=== PATIENT | female | born 1950 | race Caucasian/White ===

== ENCOUNTER 2016-12-21 08:46 | Emergency (ER) | payer MEDICARE, BC ==
[2016-12-21] MEDS ORDERED: ACETAMINOPHEN TAB 325 MG TAB PO STA (09:07)
[2016-12-21] MEDS ORDERED: PROMETHAZ-COD 6.25-10 MG/5 ML 5 ML CUP PO STA (09:09)
--- NOTE | 2016-12-21 09:16 | ED ---
General Adult HPI - General Chief complaint: Upper Respiratory Infection Stated complaint: diff breathing,cough Time Seen by Provider: 12/21/16 08:55 Source: patient Mode of arrival: ambulatory Limitations: no limitations - History of Present Illness Initial comments: 66-year-old female patient with past medical history significant for COPD presents to emergency department today for complaints of persistent dry cough, fever, and nasal drainage. Patient states symptoms started on Thursday, and seemed to be getting worse. Patient states she does get short of breath with activity. Patient usually does two nebulizer treatments per day, and has had increase to 4 per day. She did take ibuprofen this morning. Patient states that she has been having chills and sweats. Patient denies any chest pain, back pain, palpitations, nausea, vomiting, diarrhea, dizziness, or weakness. She denies any hematuria, dysuria, frequency, or urgency. She did complete a course of macrobid for urinary tract infection yesterday. Patient was also treated by her rf design engineer last month for similar symptoms and did complete a 16 day course of steroids. - Related Data Home Medications Medication Instructions Recorded Confirmed Albuterol Sulfate [Ventolin HFA] 1 - 2 puff INHALATION BID 06/22/14 12/19/14 Lansoprazole [Prevacid] 30 mg PO QAM 06/22/14 12/19/14 Loratadine [Claritin] 10 mg PO DAILY 06/22/14 12/19/14 Losartan Potassium [Cozaar] 50 mg PO QAM 06/22/14 12/19/14 Mometasone Furoate [Nasonex] 2 sprays EA NOSTRIL DAILY 06/22/14 12/19/14 Montelukast [Singulair] 10 mg PO HS 06/22/14 12/19/14 Ipratropium Nebulized [Atrovent 0.5 mg INHALATION BID 12/05/14 12/19/14 Nebulized] Magnesium Oxide [Mag-Ox] 400 mg PO DAILY 12/05/14 12/19/14 Ciprofloxacin HCl [Cipro] 500 mg PO Q12HR 12/19/14 12/19/14 Previous Rx's Medication Instructions Recorded Acetaminophen-Codeine 300-30mg 1 each PO Q6H PRN #20 tablet 12/19/14 [Tylenol #3] Levofloxacin [Levaquin] 500 mg PO DAILY #10 tab 12/21/16 Promethaz-Cod 6.25-10 mg/5 ml 5 ml PO Q6HR PRN #120 ml 12/21/16 [Phenergan with Codeine] predniSONE 10 mg PO DIRECTED #30 tab 12/21/16 Allergies Allergy/AdvReac Type Severity Reaction Status Date / Time cefuroxime AdvReac Unknown Nausea & Verified 12/21/16 08:53 Vomiting cefuroxime axetil AdvReac Unknown Nausea & Verified 12/21/16 08:53 [From Ceftin] Vomiting phenazopyridine AdvReac Unknown Nausea & Verified 12/21/16 08:53 [Phenazopyridine] Vomiting phenazopyridine HCl AdvReac Unknown Nausea & Verified 12/21/16 08:53 [From Pyridium] Vomiting Review of Systems ROS Statement: Those systems with pertinent positive or pertinent negative responses have been documented in the HPI. ROS Other: All systems not noted in ROS Statement are negative. Past Medical History Past Medical History: Asthma, COPD, Hypertension Additional Past Medical History / Comment(s): hx kidney stones,diverticulitis, IBS, obstructive sleep apnea CPAP setting 6.0, TMJ,osteopenia,restless leg syndrome, degeneritive disc disease History of Any Multi-Drug Resistant Organisms: None Reported Past Surgical History: Bladder Surgery, Cholecystectomy, Hernia Repair Additional Past Surgical History / Comment(s): lithotripsy, right foot, hiatal hernia, Past Anesthesia/Blood Transfusion Reactions: Postoperative Nausea & Vomiting ( PONV) Past Psychological History: No Psychological Hx Reported Smoking Status: Former smoker Past Alcohol Use History: None Reported Past Drug Use History: None Reported - Past Family History Mother Additional Family Medical History / Comment(s): TB 1954, emphysema General Exam Limitations: no limitations General appearance: alert, in no apparent distress, anxious Head exam: Present: atraumatic, normocephalic Eye exam: Present: normal appearance, PERRL, EOMI. Absent: conjunctival injection, nystagmus, periorbital swelling Pupils: Present: normal accommodation ENT exam: Present: normal exam, mucous membranes moist, TM's normal bilaterally , normal external ear exam. Absent: normal oropharynx (Pharyngeal erythema), mucous membranes dry Neck exam: Present: normal inspection, full ROM. Absent: tenderness, meningismus, lymphadenopathy Respiratory exam: Present: normal lung sounds bilaterally, other (Persistent cough noted during exam). Absent: respiratory distress, wheezes, rales, rhonchi , stridor, chest wall tenderness, accessory muscle use, decreased breath sounds Cardiovascular Exam: Present: normal rhythm, tachycardia, normal heart sounds. Absent: bradycardia, irregular rhythm, systolic murmur, diastolic murmur, rubs, gallop, clicks, JVD GI/Abdominal exam: Present: soft, normal bowel sounds, diminished bowel sounds. Absent: distended, tenderness, guarding, rebound, rigid, organomegaly, mass, hernia Extremities exam: Present: normal inspection Back exam: Present: normal inspection Neurological exam: Present: alert, oriented X3, CN II-XII intact Psychiatric exam: Present: normal affect, normal mood Skin exam: Present: warm, intact, normal color. Absent: dry (Diaphoretic), rash Course Vital Signs 12/21/16 12/21/16 08:48 09:05 Temperature 99.0 F 100.6 F H Pulse Rate 116 H Respiratory 20 Rate Blood Pressure 138/79 O2 Sat by Pulse 98 Oximetry EKG Findings - EKG Comments: EKG Findings:: EKG obtained at 0826 reveals sinus tachycardia, inferior anterior infarct with undetermined age, no ST elevation or depression. Ventricular rate 107, CA interval 156, QRS duration 88, QT 324, QTC 432. Medical Decision Making - Medical Decision Making 66-year-old female patient presents to emergency department today for complaints of persistent cough, fever, and shortness of breath with activity. Labs were unremarkable. Two-view chest showed no acute abnormalities. Vital signs are stable. Patient did receive Phenergan with codeine, Tylenol, as well as IV fluids which has improved her symptoms. It is felt at this time that symptoms are viral in nature and have exacerbated her chronic COPD. Patient will be placed on steroid, antibiotic, and given a prescription for Phenergan with codeine for management of symptoms at home. Patient is instructed to follow-up with her rf design engineer as well as her primary care physician if symptoms persist or worsen. Patient is instructed to return for any new, worsening, or concerning symptoms. Patient verbalizes understanding and agreed to this plan. - Lab Data Result diagrams: 12/21/16 09:45 12/21/16 09:45 Lab Results 12/21/16 12/21/16 12/21/16 Range/Units 09:45 09:45 09:45 WBC 6.2 (3.8-10.6) k/uL RBC 4.73 (3.80-5.40) m/uL Hgb 14.3 (11.4-16.0) gm/dL Hct 41.9 (34.0-46.0) % MCV 88.8 (80.0-100.0) fL MCH 30.2 (25.0-35.0) pg MCHC 34.0 (31.0-37.0) g/dL RDW 13.6 (11.5-15.5) % Plt Count 160 (150-450) k/uL Neutrophils % 84 % Lymphocytes % 6 % Monocytes % 7 % Eosinophils % 1 % Basophils % 1 % Neutrophils # 5.2 (1.3-7.7) k/uL Lymphocytes # 0.4 L (1.0-4.8) k/uL Monocytes # 0.4 (0-1.0) k/uL Eosinophils # 0.0 (0-0.7) k/uL Basophils # 0.0 (0-0.2) k/uL Sodium 142 (137-145) mmol/L Potassium 3.9 (3.5-5.1) mmol/L Chloride 107 (98-107) mmol/L Carbon Dioxide 24 (22-30) mmol/L Anion Gap 11 mmol/L BUN 13 (7-17) mg/dL Creatinine 0.70 (0.52-1.04) mg/dL Est GFR (MDRD) Af Amer >60 (>60 ml/min/1.73 sqM) Est GFR (MDRD) Non-Af >60 (>60 ml/min/1.73 sqM) Glucose 129 H (74-99) mg/dL Calcium 9.5 (8.4-10.2) mg/dL Influenza Type A RNA Not Detected (Not Detectd) Influenza Type B (PCR) Not Detected (Not Detectd) - Radiology Data Radiology results: report reviewed, image reviewed Two-view chest x-ray findings: The lungs are clear and there is no pneumothorax , pleural effusion, or focal pneumonia. Mild hypertrophic changes of the spine and mild hyperinflation. Impression: No acute process. Interpretation by Dr. Quiroga. Disposition Clinical Impression: Tracheobronchitis, COPD exacerbation Disposition: HOME SELF-CARE Condition: Stable Instructions: Acute Bronchitis (ED), COPD (Chronic Obstructive Pulmonary Disease) (ED) Additional Instructions: Increase fluids. Complete course of antibiotics and steroids. Follow-up with rf design engineer and primary care provider in one to 2 days for recheck. Return to emergency department for any new, worsening, or concerning symptoms. Prescriptions: Levofloxacin [Levaquin] 500 mg PO DAILY #10 tab Promethaz-Cod 6.25-10 mg/5 ml [Phenergan with Codeine] 5 ml PO Q6HR PRN #120 ml PRN Reason: Cough predniSONE 10 mg PO DIRECTED #30 tab Referrals: Trevor Danielson MD [Primary Care Provider] - 1-2 days Time of Disposition: 10:38
[2016-12-21] MEDS ORDERED: SODIUM CHLORIDE 0.9% 1,000 ML IV ONE (09:17)
[2016-12-21 09:59] LABS: Basophils % (A) 1 %; CH 30.4; CHCM 34.4; Eosinophils % (A) 1 %; HCT 41.9 % (34.0-46.0); HDW 2.71; HGB 14.3 gm/dL (11.4-16.0); Luc # (Auto) 0.13; Luc % (Auto) 2; Lymphocytes # (A) 0.4 k/uL (1.0-4.8); Lymphocytes % (A) 6 %; MCH 30.2 pg (25.0-35.0); MCV 88.8 fL (80.0-100.0); Mean Platelet Volume 8.3; Monocytes # (A) 0.4 k/uL (0-1.0); Monocytes % (A) 7 %; Neutrophils # (A) 5.2 k/uL (1.3-7.7); Neutrophils % (A) 84 %; RBC 4.73 m/uL (3.80-5.40); RDW 13.6 % (11.5-15.5); WBC 6.2 k/uL (3.8-10.6); WBC (Perox) 6.45
[2016-12-21 10:08] LABS: Anion Gap 11 mmol/L; Blood Urea Nitrogen 13 mg/dL (7-17); Calcium 9.5 mg/dL (8.4-10.2); Carbon Dioxide 24 mmol/L (22-30); Chloride 107 mmol/L (98-107); Glucose 129 mg/dL (74-99); Non-African American GFR(MDRD) >60 (>60 ml/min/1.73 sqM); Potassium 3.9 mmol/L (3.5-5.1); Sodium 142 mmol/L (137-145)
--- NOTE | 2016-12-21 10:17 | XR ---
EXAMINATION TYPE: XR chest 2V DATE OF EXAM: 12/21/2016 10:11 AM COMPARISON: 12/29/2011 TECHNIQUE: PA and lateral views submitted. HISTORY: Cough and fever FINDINGS: The lungs are clear and there is no pneumothorax, pleural effusion, or focal pneumonia. Mild hypert rophic change of the spine and mild hyperinflation. IMPRESSION: 1. No acute process.
[2016-12-21] MEDS ORDERED: methylPREDNISolone SOD SUCCI 125 MG/2 ML VIAL IV STA (10:33)
[2016-12-21 10:46] VITALS: BP 150/69; PULSE 103; RESP 18
[2016-12-21 10:57] VITALS: TEMP 99.2
[2016-12-21 11:14] LABS: Appearance,Urine Slightly Cloudy (Clear); Bilirubin,Urine Negative (Negative); Glucose,Urine (UA) Negative (Negative); Urobilinogen,Urine <2.0 mg/dL (<2.0)
[2016-12-21 11:15] LABS: Ketones,Urine Negative (Negative); Leukocyte Esterase,Urine Large (Negative); Nitrite,Urine Negative (Negative); Protein,Urine Negative (Negative); Specific Gravity,Urine 1.015 (1.001-1.035); UA Billing (MACRO vs. MICRO) MICRO
[2016-12-21 11:16] LABS: Bacteria,Urine Rare /hpf; Mucus,Urine Rare /hpf; Particle Count 2536; RBC,Urine 1 /hpf (0-5); Squamous Epithelial Cell,Urine 2 /hpf (0-4); WBC,Urine 6 /hpf (0-5)
== END 2016-12-21 10:59 | disposition home or self-care (01) ==
LOC: EC 08:46
DX: J44.1 Chronic obstructive pulmonary disease with (acute) exacerbation (principal); J20.9 Acute bronchitis, unspecified; J44.0 Chronic obstructive pulmonary disease with (acute) lower respiratory infection; Z79.899 Other long term (current) drug therapy; I10 Essential (primary) hypertension; Z79.51 Long term (current) use of inhaled steroids; Z88.8 Allergy status to other drugs, medicaments and biological substances; Z88.1 Allergy status to other antibiotic agents; G47.33 Obstructive sleep apnea (adult) (pediatric); K58.9 Irritable bowel syndrome, unspecified; Z87.891 Personal history of nicotine dependence
CPT/HCPCS: 36415; 93005; 80048; 85025; 81001; 87040; 87502; 71020; 96374; 96361; 99284; J2930

== ENCOUNTER → 2017-10-01 | Outpatient (CLI) | payer MEDICARE, BC ==
--- NOTE | 2017-10-01 10:21 | USB ---
Reason for exam: additional evaluation requested from abnormal screening. History: Patient is postmenopausal. Physical Findings: Nurse did not find any significant physical abnormalities on exam. US Breast Workup LT Left breast ultrasound includes all four quadrants, the retroareolar region and axilla. Finding demonstrates a 4 x 2 x 5mm oval, mixed lesion at 1 o'clock, a 5 x 3 x 6mm oval, cystic lesion at 2 o'clock and a 7 x 5 x 6mm oval, cystic lesion at 3 o'clock. These results were verbally communicated with the patient and result sheet given to the patient on 10/01/17. ASSESSMENT: Probably benign, BI-RAD 3 RECOMMENDATION: Ultrasound of the left breast in 6 months.
== END | disposition home or self-care (01) ==
LOC: RADUSWWP 09:27
PROVIDERS: ATTEND Family Medicine
DX: R92.8 Other abnormal and inconclusive findings on diagnostic imaging of breast (principal)

== ENCOUNTER → 2018-03-19 | Outpatient (CLI) | payer MEDICARE, BC ==
--- NOTE | 2018-03-22 10:07 | USB ---
Reason for exam: follow-up at short interval from prior study. History: Patient is postmenopausal. Physical Findings: Nurse did not find any significant physical abnormalities on exam. US Breast LT Left complete breast ultrasound includes all four quadrants, the retroareolar region and axilla. Finding demonstrates a 0.2 x 0.2 x 0.2cm oval, cystic cluster at 1 o'clock, a 0.3 x 0.3 x 0.2cm oval, cystic lesion at 2 o'clock, a 0.5 x 0.5 x 0.3cm oval, cystic lesion at 3 o'clock and a 0.7 x 0.6 x 0.4cm oval, cystic lesion at 3 o'clock. These results were verbally communicated with the patient and result sheet given to the patient on 03/19/18. ASSESSMENT: Benign, BI-RAD 2 RECOMMENDATION: Return to routine screening mammogram schedule for both breasts. Back on schedule.
== END | disposition home or self-care (01) ==
LOC: RADUSWWP 14:45
PROVIDERS: ATTEND Family Medicine
DX: R92.8 Other abnormal and inconclusive findings on diagnostic imaging of breast (principal)

== ENCOUNTER → 2018-04-21 | Outpatient (CLI) | payer MEDICARE, BC ==
--- NOTE | 2018-04-22 09:14 | BD ---
EXAMINATION TYPE: Axial Bone Density DATE OF EXAM: 04/21/2018 COMPARISON: NONE CLINICAL HISTORY: Postmenopausal female Height: 61 inches Weight: 220.6 FRAX RISK QUESTIONS: Alcohol (3 or more units per day): no Family History (Parent hip fracture): no Glucocorticoids (More than 3mos): no (Ex: prednisone, prednisolone, methylprednisolone, dexamethasone, and hydrocortisone). History of Fracture in Adulthood: no Secondary Osteoporosis: 1. Type 1 Diabetes: no 2. Hyperthyroidism: no 3. Menopause before 45: yes 4. Malnutrition: no 5. Chronic liver disease: no Rheumatoid Arthritis: no Current Tobacco Use: no RISK FACTORS HISTORY OF: Family History of Osteoporosis: yes /mother Active: yes Diet low in dairy products/other sources of calcium: no Postmenopausal woman: age 42 Lost more than 2 inches in height since high school: no MEDICATIONS: blood pressure, cholesterol meds, bladder meds x3, inhalers Additional History: EXAM MEASUREMENTS: Bone mineral densitometry was performed using the [employer]. Bone mineral density as measured about the Lumbar spine is: ----- L1-L4(G/cm2): 1.131 T Score Values are as follows: ----- L2: -1.3 ----- L3: -0.2 ----- L4: 0.6 ----- L1-L4: -0.4 Bone mineral density : baseline Bone mineral density about the R hip (g/cm2): 0.873 Bone mineral density about the L hip (g/cm2): 0.846 T Score values are as follows: -----R Neck: -1.2 -----L Neck: -1.4 -----R Total: -0.8 -----L Total: -0.6 Bone mineral density : baseline IMPRESSION: Osteopenia (T Score between -2.5 and -1) at 2 consecutive levels in the low back and femoral neck lev el in both hips. There is slightly increased risk of fracture and the patient may be considered for treatment. Re-Screen 2-5 years. NOTE: T-SCORE=SD OF THE YOUNG ADULT MEAN.
== END | disposition home or self-care (01) ==
LOC: RADBDWWP 15:58
PROVIDERS: ATTEND Family Medicine
DX: M85.852 Other specified disorders of bone density and structure, left thigh (principal); M85.851 Other specified disorders of bone density and structure, right thigh; M85.88 Other specified disorders of bone density and structure, other site; N95.9 Unspecified menopausal and perimenopausal disorder
CPT/HCPCS: 77080

== ENCOUNTER 2018-10-03 07:09 | Observation (INO) | payer MEDICARE, BC ==
[2018-10-03] MEDS ORDERED: IPRATROPIUM 0.5 MG/2.5 ML NEBU INHALATION STA (08:33)
[2018-10-03] MEDS ORDERED: methylPREDNISolone SOD SUCCI 125 MG/2 ML VIAL IV STA (08:33)
[2018-10-03] MEDS ORDERED: ALBUTEROL NEBULIZED 2.5 MG/3 ML INHALATION STA (08:33)
--- NOTE | 2018-10-03 08:38 | ED ---
General Adult HPI - General Chief complaint: Upper Respiratory Infection Stated complaint: COUGHING Time Seen by Provider: 10/03/18 08:30 Source: patient, RN notes reviewed, old records reviewed Mode of arrival: ambulatory Limitations: no limitations - History of Present Illness Initial comments: 68 -year-old female presenting for evaluation of cough and dyspnea. Patient's symptoms began 2 weeks ago, she had upper respiratory tract infection and was treated with Augmentin. Symptoms have now improved. She has developed cough and fever and chills. Cough is nonproductive. Denies chest pain. Denies abdominal pain nausea vomiting. No lower extremity pain or swelling. - Related Data Home Medications Medication Instructions Recorded Confirmed Albuterol Sulfate [Ventolin HFA] 1 - 2 puff INHALATION BID 06/22/14 12/19/14 Lansoprazole [Prevacid] 30 mg PO QAM 06/22/14 12/19/14 Loratadine [Claritin] 10 mg PO DAILY 06/22/14 12/19/14 Losartan Potassium [Cozaar] 50 mg PO QAM 06/22/14 12/19/14 Mometasone Furoate [Nasonex] 2 sprays EA NOSTRIL DAILY 06/22/14 12/19/14 Montelukast [Singulair] 10 mg PO HS 06/22/14 12/19/14 Ipratropium Nebulized [Atrovent 0.5 mg INHALATION BID 12/05/14 12/19/14 Nebulized] Magnesium Oxide [Mag-Ox] 400 mg PO DAILY 12/05/14 12/19/14 Ciprofloxacin HCl [Cipro] 500 mg PO Q12HR 12/19/14 12/19/14 Previous Rx's Medication Instructions Recorded Acetaminophen-Codeine 300-30mg 1 each PO Q6H PRN #20 tablet 12/19/14 [Tylenol #3] Levofloxacin [Levaquin] 500 mg PO DAILY #10 tab 12/21/16 Promethaz-Cod 6.25-10 mg/5 ml 5 ml PO Q6HR PRN #120 ml 12/21/16 [Phenergan with Codeine] predniSONE 10 mg PO DIRECTED #30 tab 12/21/16 Allergies Allergy/AdvReac Type Severity Reaction Status Date / Time cefuroxime AdvReac Unknown Nausea & Verified 10/03/18 07:19 Vomiting cefuroxime axetil AdvReac Unknown Nausea & Verified 10/03/18 07:19 [From Ceftin] Vomiting phenazopyridine AdvReac Unknown Nausea & Verified 10/03/18 07:19 [Phenazopyridine] Vomiting phenazopyridine HCl AdvReac Unknown Nausea & Verified 10/03/18 07:19 [From Pyridium] Vomiting Review of Systems ROS Statement: Those systems with pertinent positive or pertinent negative responses have been documented in the HPI. ROS Other: All systems not noted in ROS Statement are negative. Past Medical History Past Medical History: Asthma, COPD, Hypertension Additional Past Medical History / Comment(s): hx kidney stones,diverticulitis, IBS, obstructive sleep apnea CPAP setting 6.0, TMJ,osteopenia,restless leg syndrome, degeneritive disc disease History of Any Multi-Drug Resistant Organisms: ESBL Date of last positivie culture/infection: 02/05/18 MDRO Source:: ESBL URINE Past Surgical History: Bladder Surgery, Cholecystectomy, Hernia Repair Additional Past Surgical History / Comment(s): lithotripsy, right foot, hiatal hernia, Past Anesthesia/Blood Transfusion Reactions: Postoperative Nausea & Vomiting ( PONV) Past Psychological History: Anxiety Smoking Status: Former smoker Past Alcohol Use History: None Reported Past Drug Use History: None Reported - Past Family History Mother Additional Family Medical History / Comment(s): TB 1954, emphysema General Exam Limitations: no limitations General appearance: alert, in no apparent distress Head exam: Present: atraumatic, normocephalic Eye exam: Present: normal appearance, PERRL ENT exam: Present: normal exam Neck exam: Present: normal inspection. Absent: tenderness Respiratory exam: Present: respiratory distress, wheezes, decreased breath sounds Cardiovascular Exam: Present: normal rhythm, tachycardia GI/Abdominal exam: Present: soft. Absent: distended, tenderness Extremities exam: Present: normal inspection, normal capillary refill. Absent: pedal edema Back exam: Present: normal inspection Neurological exam: Present: alert, oriented X3, CN II-XII intact. Absent: motor sensory deficit Psychiatric exam: Present: normal affect, normal mood Skin exam: Present: warm, dry, intact. Absent: cyanosis, diaphoretic Course Vital Signs 10/03/18 10/03/18 10/03/18 07:19 08:59 09:19 Temperature 99.3 F Pulse Rate 112 H 110 H 112 H Respiratory 18 Rate Blood Pressure 145/74 O2 Sat by Pulse 96 Oximetry Medical Decision Making - Medical Decision Making 68-year-old female with history COPD presenting with 2 weeks of cough and dyspnea. Patient's been treated for upper respiratory tract infection and sinusitis. Chest x-ray obtained, negative for focal pneumonia or acute findings. Patient has normal CBC, normal CMP, influenza A is negative. After treatment with albuterol, Atrovent, and IV steroids, patient was not significantly improved. She will be admitted for further treatment of COPD exacerbation, failed outpatient treatment. Case discussed with the admitting physician, will place pulmonology on consult. - Lab Data Result diagrams: 10/03/18 10:05 10/03/18 08:55 Lab Results 10/03/18 10/03/18 10/03/18 Range/Units 08:55 08:55 08:55 WBC (3.8-10.6) k/uL RBC (3.80-5.40) m/uL Hgb (11.4-16.0) gm/dL Hct (34.0-46.0) % MCV (80.0-100.0) fL MCH (25.0-35.0) pg MCHC (31.0-37.0) g/dL RDW (11.5-15.5) % Plt Count (150-450) k/uL Neutrophils % % Lymphocytes % % Monocytes % % Eosinophils % % Basophils % % Neutrophils # (1.3-7.7) k/uL Lymphocytes # (1.0-4.8) k/uL Monocytes # (0-1.0) k/uL Eosinophils # (0-0.7) k/uL Basophils # (0-0.2) k/uL PT (9.0-12.0) sec INR (<1.2) APTT (22.0-30.0) sec Sodium 142 (137-145) mmol/L Potassium 4.3 (3.5-5.1) mmol/L Chloride 107 (98-107) mmol/L Carbon Dioxide 25 (22-30) mmol/L Anion Gap 10 mmol/L BUN 15 (7-17) mg/dL Creatinine 0.74 (0.52-1.04) mg/dL Est GFR (CKD-EPI)AfAm >90 (>60 ml/min/1.73 sqM) Est GFR (CKD-EPI)NonAf 85 (>60 ml/min/1.73 sqM) Glucose 106 H (74-99) mg/dL Plasma Lactic Acid Bart 1.0 (0.7-2.0) mmol/L Calcium 9.2 (8.4-10.2) mg/dL Magnesium 1.8 (1.6-2.3) mg/dL Total Bilirubin 0.6 (0.2-1.3) mg/dL AST 24 (14-36) U/L ALT 32 (9-52) U/L Alkaline Phosphatase 121 (38-126) U/L Total Creatine Kinase 72 (30-135) U/L CK-MB (CK-2) 0.6 (0.0-2.4) ng/mL CK-MB (CK-2) Rel Index 0.8 Troponin I <0.012 (0.000-0.034) ng/mL Total Protein 7.2 (6.3-8.2) g/dL Albumin 4.1 (3.5-5.0) g/dL Influenza Type A RNA (Not Detectd) Influenza Type B (PCR) (Not Detectd) 10/03/18 10/03/18 10/03/18 Range/Units 08:55 08:55 10:05 WBC 10.0 (3.8-10.6) k/uL RBC 4.99 (3.80-5.40) m/uL Hgb 14.6 (11.4-16.0) gm/dL Hct 44.7 (34.0-46.0) % MCV 89.6 (80.0-100.0) fL MCH 29.3 (25.0-35.0) pg MCHC 32.7 (31.0-37.0) g/dL RDW 13.4 (11.5-15.5) % Plt Count 173 (150-450) k/uL Neutrophils % 79 % Lymphocytes % 12 % Monocytes % 5 % Eosinophils % 3 % Basophils % 1 % Neutrophils # 7.9 H (1.3-7.7) k/uL Lymphocytes # 1.2 (1.0-4.8) k/uL Monocytes # 0.5 (0-1.0) k/uL Eosinophils # 0.3 (0-0.7) k/uL Basophils # 0.1 (0-0.2) k/uL PT 9.8 (9.0-12.0) sec INR 0.9 (<1.2) APTT 22.5 (22.0-30.0) sec Sodium (137-145) mmol/L Potassium (3.5-5.1) mmol/L Chloride (98-107) mmol/L Carbon Dioxide (22-30) mmol/L Anion Gap mmol/L BUN (7-17) mg/dL Creatinine (0.52-1.04) mg/dL Est GFR (CKD-EPI)AfAm (>60 ml/min/1.73 sqM) Est GFR (CKD-EPI)NonAf (>60 ml/min/1.73 sqM) Glucose (74-99) mg/dL Plasma Lactic Acid Bart (0.7-2.0) mmol/L Calcium (8.4-10.2) mg/dL Magnesium (1.6-2.3) mg/dL Total Bilirubin (0.2-1.3) mg/dL AST (14-36) U/L ALT (9-52) U/L Alkaline Phosphatase (38-126) U/L Total Creatine Kinase (30-135) U/L CK-MB (CK-2) (0.0-2.4) ng/mL CK-MB (CK-2) Rel Index Troponin I (0.000-0.034) ng/mL Total Protein (6.3-8.2) g/dL Albumin (3.5-5.0) g/dL Influenza Type A RNA Not Detected (Not Detectd) Influenza Type B (PCR) Not Detected (Not Detectd) Disposition Clinical Impression: COPD exacerbation Disposition: ADMITTED IP TO THIS HOSP Condition: Stable Is patient prescribed a controlled substance at d/c from ED?: No Referrals: Sourav Brandt MD [Primary Care Provider] - 1-2 days Decision to Admit Reason: Admit from EC Decision Date: 10/03/18 Decision Time: 11:20
[2018-10-03 09:39] LABS: INR 0.9 (<1.2); Partial Thromboplastin Time 22.5 sec (22.0-30.0); Prothrombin Time 9.8 sec (9.0-12.0)
[2018-10-03 09:45] LABS: ALT 32 U/L (9-52); AST 24 U/L (14-36); Albumin 4.1 g/dL (3.5-5.0); Alkaline Phosphatase 121 U/L (38-126); Anion Gap 10 mmol/L; Blood Urea Nitrogen 15 mg/dL (7-17); Calcium 9.2 mg/dL (8.4-10.2); Carbon Dioxide 25 mmol/L (22-30); Chloride 107 mmol/L (98-107); Glucose 106 mg/dL (74-99); Magnesium 1.8 mg/dL (1.6-2.3); Potassium 4.3 mmol/L (3.5-5.1); Sodium 142 mmol/L (137-145); Total Bilirubin 0.6 mg/dL (0.2-1.3); Total Protein 7.2 g/dL (6.3-8.2)
--- NOTE | 2018-10-03 09:48 | XR ---
EXAMINATION TYPE: XR chest 2V DATE OF EXAM: 10/03/2018 COMPARISON: Chest x-ray December 21, 2016 HISTORY: Shortness of breath, cough, congestion, and fever for 2 weeks. TECHNIQUE: Frontal and lateral views of the chest are obtained. FINDINGS: There is chronic parenchymal change without suspicious focal air space opacity, pleural ef fusion, or pneumothorax seen. The cardiac silhouette size is within normal limits. Degenerative grier ge in both shoulders are present. IMPRESSION: No suspicious new acute pulmonary process.
[2018-10-03 09:53] LABS: Creatine Kinase 72 U/L (30-135)
[2018-10-03 10:07] LABS: Creatine Kinase MB 0.6 ng/mL (0.0-2.4); Troponin I <0.012 ng/mL (0.000-0.034)
[2018-10-03 10:34] LABS: Basophils # (A) 0.1 k/uL (0-0.2); Basophils % (A) 1 %; Eosinophils # (A) 0.3 k/uL (0-0.7); Eosinophils % (A) 3 %; HCT 44.7 % (34.0-46.0); HGB 14.6 gm/dL (11.4-16.0); Lymphocytes # (A) 1.2 k/uL (1.0-4.8); Lymphocytes % (A) 12 %; MCH 29.3 pg (25.0-35.0); MCHC 32.7 g/dL (31.0-37.0); MCV 89.6 fL (80.0-100.0); Mean Platelet Volume 7.4; Monocytes # (A) 0.5 k/uL (0-1.0); Monocytes % (A) 5 %; Neutrophils # (A) 7.9 k/uL (1.3-7.7); Neutrophils % (A) 79 %; Platelet Count 173 k/uL (150-450); RBC 4.99 m/uL (3.80-5.40); RDW 13.4 % (11.5-15.5)
[2018-10-03] MEDS ORDERED: IPRATROPIUM-ALBUTEROL 3 ML NEB INHALATION PRN (11:17)
[2018-10-03] MEDS ORDERED: ALBUTEROL NEBULIZED 2.5 MG/3 ML INHALATION PRN (11:18)
[2018-10-03] MEDS: ACETAMINOPHEN TAB 325 MG TAB PO PRN ×2 (11:51→17:54)
[2018-10-03] MEDS ORDERED: methylPREDNISolone SOD SUCCI 125 MG/2 ML VIAL IV SCH (12:00)
[2018-10-03 13:56] VITALS: BMI 40.8
[2018-10-03] MEDS ORDERED: BENZONATATE 100 MG CAP PO PRN (14:01)
--- NOTE | 2018-10-03 14:53 | P.HPIM ---
History of Present Illness 68-year-old pleasant female is actually admitted for shortness of breath and COPD exacerbation although patient main symptoms appear to be mostly sinusitis fever patient was started on Augmentin recently on Thursday without any significant improvement patient that Getting Worse Generalized Tightness Weakness Because of Which Patient Came to the Hospital. Patient Was Started on Levofloxacin Here Which Will Be Continued. We'll Obtain ENT Consultation. Patient Although Was Comparing of Some Shortness of Breath but No Wheezing at This Time Saturating Well on 2 L of onset and probably even if we discontinue that she is to do okay believe and patient was complaining of sinusitis congested nose is complaining of cough unable to bring up anything quit smoking about 11 years ago. Patient did have high-grade fevers here patient denied any flulike symptoms nausea vomiting diarrhea. Patient's of influenza testing was negative I do not have any years without any year chest x-ray did not show any pneumonic process. Review of Systems REVIEW OF SYSTEMS: CONSTITUTIONAL: No fever, no malaise, no fatigue. HEENT: As mentioned in HPI CARDIOVASCULAR: No chest pain, orthopnea, PND, no palpitations, no syncope. PULMONARY: no hemoptysis. GASTROINTESTINAL: No diarrhea, no nausea, no vomiting, no abdominal pain. NEUROLOGICAL: No headaches, no weakness, no numbness. HEMATOLOGICAL: Denies any bleeding or petechiae. GENITOURINARY: Denies any burning micturition, frequency, or urgency. MUSCULOSKELETAL/RHEUMATOLOGICAL: Denies any joint pain, swelling, or any muscle pain. ENDOCRINE: Denies any polyuria or polydipsia. The rest of the 14-point review of systems is negative. Past Medical History Past Medical History: Asthma, COPD, Hypertension Additional Past Medical History / Comment(s): hx kidney stones,diverticulitis, IBS, obstructive sleep apnea CPAP setting 6.0, TMJ,osteopenia,restless leg syndrome, degeneritive disc disease History of Any Multi-Drug Resistant Organisms: ESBL Date of last positivie culture/infection: 02/05/18 MDRO Source:: ESBL URINE Past Surgical History: Bladder Surgery, Cholecystectomy, Hernia Repair Additional Past Surgical History / Comment(s): lithotripsy, right foot, hiatal hernia, Past Anesthesia/Blood Transfusion Reactions: Postoperative Nausea & Vomiting ( PONV) Past Psychological History: Anxiety Smoking Status: Former smoker Past Alcohol Use History: None Reported Past Drug Use History: None Reported - Past Family History Mother Additional Family Medical History / Comment(s): TB 1954, emphysema Medications and Allergies Home Medications Medication Instructions Recorded Confirmed Type Lansoprazole [Prevacid] 30 mg PO QAM 06/22/14 10/03/18 History Loratadine [Claritin] 10 mg PO DAILY 06/22/14 10/03/18 History Montelukast [Singulair] 10 mg PO HS 06/22/14 10/03/18 History Albuterol Nebulized [Ventolin 2.5 mg INHALATION RT-Q6H PRN 10/03/18 10/03/18 History Nebulized] Amoxic-Pot Clav 875-125Mg 1 tab PO Q12HR 10/03/18 10/03/18 History [Augmentin 875-125] Benzonatate [Tessalon Perles] 100 mg PO TID PRN 10/03/18 10/03/18 History Meloxicam 15 mg PO DAILY 10/03/18 10/03/18 History Mirabegron [Myrbetriq] 50 mg PO DAILY 10/03/18 10/03/18 History Simvastatin [Zocor] 20 mg PO HS 10/03/18 10/03/18 History Telmisartan [Micardis] 40 mg PO DAILY 10/03/18 10/03/18 History buPROPion XL [Wellbutrin Xl] 150 mg PO DAILY 10/03/18 10/03/18 History Allergies Allergy/AdvReac Type Severity Reaction Status Date / Time cefuroxime AdvReac Unknown Nausea & Verified 10/03/18 12:08 Vomiting cefuroxime axetil AdvReac Unknown Nausea & Verified 10/03/18 12:08 [From Ceftin] Vomiting phenazopyridine AdvReac Unknown Nausea & Verified 10/03/18 12:08 [Phenazopyridine] Vomiting phenazopyridine HCl AdvReac Unknown Nausea & Verified 10/03/18 12:08 [From Pyridium] Vomiting Physical Exam Vitals: Vital Signs Temp Pulse Pulse Resp BP BP Pulse Ox 10/03/18 14:10 98.0 F 96 20 157/88 95 10/03/18 13:26 100 10/03/18 12:22 99.9 F H 111 H 24 136/97 96 10/03/18 11:26 100.3 F H 106 H 24 124/76 95 10/03/18 09:19 112 H 10/03/18 08:59 110 H 10/03/18 07:19 99.3 F 112 H 18 145/74 96 Intake and Output 10/02/18 10/03/18 10/03/18 22:59 06:59 14:59 Other: Weight 95 kg PHYSICAL EXAMINATION: GENERAL: The patient is alert and oriented x3, not in any acute distress. Well developed, well nourished. HEENT: Pupils are round and equally reacting to light. EOMI. No scleral icterus. No conjunctival pallor. Normocephalic, atraumatic. She has some pharyngeal erythema congested nose appears to have congested sinuses although no significant sinus tenderness was appreciated CARDIOVASCULAR: S1 and S2 present. No murmurs, rubs, or gallops. PULMONARY: Chest is clear to auscultation, no wheezing or crackles. ABDOMEN: Soft, nontender, nondistended, normoactive bowel sounds. No palpable organomegaly. MUSCULOSKELETAL: No joint swelling or deformity. EXTREMITIES: No cyanosis, clubbing, or pedal edema. NEUROLOGICAL: Gross neurological examination did not reveal any focal deficits. SKIN: No rashes. Results CBC & Chem 7: 10/03/18 10:05 10/03/18 08:55 Labs: Abnormal Lab Results - Last 24 Hours (Table) 10/03/18 10/03/18 Range/Units 08:55 10:05 Neutrophils # 7.9 H (1.3-7.7) k/uL Glucose 106 H (74-99) mg/dL Thrombosis Risk Factor Assmnt - Choose All That Apply Each Risk Factor Represents 2 Points: Age 61-74 years Thrombosis Risk Factor Assessment Total Risk Factor Score: 2 Thrombosis Risk Factor Assessment Level: Low Risk Assessment and Plan Plan: Sepsis: Source is probably upper respiratory tract including sinusitis patient was started on levofloxacin which will be continued as she fail Augmentin I believe this is appropriate we'll consult the ENT. May need infectious disease to see the patient as well if she continues to have fevers. Blood cultures will be obtained. There is no pneumonia on the chest x-ray. Patient had a history of ESBL UTIs in the past will obtain UA and urine cultures -COPD without any significant exacerbation and do not believe patient will require systemic steroids I'll start her on inhaled steroids discontinue IV steroids at this time. -Hypertension -Obesity -Anxiety disorder -Obstructive sleep apnea patient will continue her CPAP machine For above-mentioned chronic medical problems patient will be resumed and continued on appropriate home medications
[2018-10-03] MEDS: IPRATROPIUM-ALBUTEROL 3 ML NEB INHALATION SCH ×2 (16:07→20:41)
[2018-10-03 16:13] LABS: Appearance,Urine Clear (Clear); Bilirubin,Urine Negative (Negative); Blood,Urine Negative (Negative); Color,Urine Light Yellow; Glucose,Urine (UA) 3+ (Negative); Ketones,Urine Negative (Negative); Leukocyte Esterase,Urine Negative (Negative); Nitrite,Urine Negative (Negative); PH, Urine 5.5 (5.0-8.0); Protein,Urine Negative (Negative); Specific Gravity,Urine 1.007 (1.001-1.035); Urobilinogen,Urine <2.0 mg/dL (<2.0)
[2018-10-03] MEDS ORDERED: INSULIN ASPART 100 UNIT/ML 1 ML 10 ML VIAL SQ SCH (17:30)
[2018-10-03] MEDS: SYMBICORT 160-4.5 MCG INHALER INHALATION SCH (20:41)
[2018-10-03] MEDS ORDERED: methylPREDNISolone SOD SUCCI 40 MG/ML 1 ML VIAL IV SCH (21:00)
[2018-10-03] MEDS ORDERED: ATORVASTATIN 10 MG TAB PO SCH (21:00)
[2018-10-04] MEDS: ACETAMINOPHEN TAB 325 MG TAB PO PRN (05:27)
--- NOTE | 2018-10-04 06:49 | CONS ---
CONSULTATION DATE OF SERVICE: 10/03/2018. REASON FOR CONSULTATION: Sepsis. HISTORY OF PRESENT ILLNESS: The patient is a 68-year-old female who presented to the ER at [facility] early this morning with chief complaints of increasing shortness of breath and cough. Apparently her symptoms has been going on for more than 2 weeks now and started with URI that is mostly some sore throat and however the patient now having a cough which has been mostly dry in nature intensity, [id number] with associated shortness of breath along with the fever. The patient has been treated in the outpatient setting with Augmentin without any improvement. The patient denies having any abdominal pain. No nausea, vomiting. No diarrhea. No joint swelling. With these symptoms, the patient was evaluated by the ER physician. On arrival to the ER, the patient did have a chest x-ray which was negative for any acute pulmonary process. The patient did have a low-grade fever of 100.3-99.9, slight tachycardia. The patient was started on Levaquin because of her cefuroxime allergy. UA has been negative. Influenza PCR was negative. Infectious Disease was consulted for further recommendation regarding antibiotic therapy. REVIEW OF SYSTEMS: Positive points have been mentioned in HPI. Rest of the systems have been negative. PAST MEDICAL HISTORY: Asthma, COPD, hypertension, history of kidney stones, diverticulitis, IBS, obstructive sleep apnea and history of ESBL E coli urinary tract infection. PAST SURGICAL HISTORY: Bladder surgery, cholecystectomy, lithotripsy and hernia repair. SOCIAL HISTORY: Remote history of smoking. No drinking or drug use. FAMILY HISTORY: Mother with history of TB and emphysema. ALLERGIES: ALLERGIES TO CEFUROXIME AND . MEDICATION: Medications include the patient is currently on Tylenol, Ventolin, DuoNeb, Lipitor, Tessalon Perles, Wellbutrin XL, Levaquin, daily, Cozaar and Protonix. EXAMINATION: Blood pressure is 157/88, pulse of 96, temperature 98. She is 95% on 2 L nasal cannula. General description is an elderly female lying in bed in no distress. No tachypnea or accessory muscles of respiration use. HEENT: Shows no pallor or scleral icterus. Oral mucosal membranes are moist. No pharyngeal erythema or thrush. Neck trachea central. No thyromegaly. Lungs unlabored breathing, decreased breath sounds in the bases. No wheeze or crackles. Heart S1, S2. Regular rate. Normal sounds. Abdomen soft, no tenderness. No guarding. No rigidity. No organomegaly. EXTREMITIES: No edema of the feet. Skin examination no rashes or masses palpable. Neurological: Patient is awake, alert, oriented x3. Mood and affect normal. LABS: The patient Influenza A and B serology has been negative. Chest x-ray negative for acute pulmonary process. UA has been negative. White count normal. DIAGNOSTIC IMPRESSION AND PLAN: 1. Patient admitted to the hospital with increasing shortness of breath. She does have a cough which has been mild to moderate intensity drainage and not bringing up any sputum with some associated URI symptoms failing outpatient oral Augmentin therapy with question of possible sinusitis versus early community-acquired pneumonia not entirely excluded that seems to have failed outpatient oral Augmentin therapy. 2. Patient does have a CEFUROXIME ALLERGY that will limit the number of antibiotics that could be safely used. PLAN: 1. We will request repeating a chest x-ray, PA and lateral tomorrow to make sure not developing any new infiltrate. 2. We will increase the dose of Levaquin to 750 p.o. daily. 3. Try to obtain sputum for Gram stain culture and sensitivity. 4. We will follow up on clinical condition and culture to further adjust medication if needed. Thank you for this consultation, we will follow the patient along with you. MMODL / IJN: [id number] /
[2018-10-04] MEDS ORDERED: PANTOPRAZOLE 40 MG TABLET PO SCH (07:30)
[2018-10-04 07:51] LABS: HCT 43.3 % (34.0-46.0); HGB 14.4 gm/dL (11.4-16.0); MCH 29.6 pg (25.0-35.0); MCHC 33.4 g/dL (31.0-37.0); MCV 88.8 fL (80.0-100.0); Platelet Count 201 k/uL (150-450); RBC 4.87 m/uL (3.80-5.40); WBC 8.7 k/uL (3.8-10.6)
[2018-10-04] MEDS: SYMBICORT 160-4.5 MCG INHALER INHALATION SCH (07:59)
[2018-10-04] MEDS: IPRATROPIUM-ALBUTEROL 3 ML NEB INHALATION SCH ×3 (07:59→16:22)
[2018-10-04 08:17] LABS: Anion Gap 10 mmol/L; Blood Urea Nitrogen 20 mg/dL (7-17); Carbon Dioxide 24 mmol/L (22-30); Chloride 107 mmol/L (98-107); Glucose 116 mg/dL (74-99); Potassium 4.6 mmol/L (3.5-5.1); Sodium 141 mmol/L (137-145)
[2018-10-04 08:18] LABS: Calcium 9.6 mg/dL (8.4-10.2)
--- NOTE | 2018-10-04 08:29 | XR ---
EXAMINATION TYPE: XR chest 2V DATE OF EXAM: 10/04/2018 COMPARISON: Chest x-ray from yesterday. HISTORY: Pneumonia progress study TECHNIQUE: Frontal and lateral views of the chest are obtained. FINDINGS: There is new patchy left basilar opacity on frontal view. Right lung remains clear. No ple ural effusion or pneumothorax is seen bilaterally. The cardiac silhouette size is mildly enlarged ath erosclerotic thoracic aorta. The osseous structures are intact. Cholecystectomy clips are noted on lateral view. IMPRESSION: Developing patchy left basilar atelectasis and/or infiltrate.
[2018-10-04] MEDS ORDERED: buPROPion XL 150 MG TAB.ER.24H PO SCH (09:00)
[2018-10-04] MEDS ORDERED: LEVOFLOXACIN 500 MG TAB PO SCH (09:00)
[2018-10-04] MEDS ORDERED: LORATADINE 10 MG TAB PO SCH (09:00)
[2018-10-04] MEDS ORDERED: Mirabegron [Myrbetriq] PO SCH (09:00)
[2018-10-04] MEDS ORDERED: LEVOFLOXACIN 750 MG TAB PO SCH (09:00)
[2018-10-04] MEDS ORDERED: LOSARTAN 50 MG TAB PO SCH (09:00)
[2018-10-04 10:32] LABS: Hemoglobin A1C 6.3 % (4.0-6.0)
--- NOTE | 2018-10-04 12:56 | P.DS ---
Providers Date of admission: 10/03/18 11:17 Attending physician: Satya Sol Consults: 10/03/18 11:19 Consult Physician Routine Consulting Provider: Lindy Lozano Consult Reason/Comments: COPD Do you want consulting provider notified?: Yes 10/03/18 14:53 Consult Physician Routine Consulting Provider: Nadine Lane Consult Reason/Comments: sepsis Do you want consulting provider notified?: Yes Primary care physician: Sourav Brandt Hospital Course: 68-year-old pleasant female is actually admitted for shortness of breath and COPD exacerbation although patient main symptoms appear to be mostly sinusitis fever patient was started on Augmentin recently on Thursday without any significant improvement patient that Getting Worse Generalized Tightness Weakness Because of Which Patient Came to the Hospital. Patient Was Started on Levofloxacin Here Which Will Be Continued. We'll Obtain ENT Consultation. Patient Although Was Comparing of Some Shortness of Breath but No Wheezing at This Time Saturating Well on 2 L of onset and probably even if we discontinue that she is to do okay believe and patient was complaining of sinusitis congested nose is complaining of cough unable to bring up anything quit smoking about 11 years ago. Patient did have high-grade fevers here patient denied any flulike symptoms nausea vomiting diarrhea. Patient's of influenza testing was negative I do not have any years without any year chest x-ray did not show any pneumonic process. 10/04/2018 Patient is afebrile feeling much better compared to yesterday. And had new developing infiltrate in the left lower lobe possibly come in today quite pneumonia. Patient will be discharged today. Patient doesn't have any significant wheezing and do not believe patient will need systemic steroids patient will be discharged on inhaled steroids will discuss with pulmonary regarding the systemic steroids. PHYSICAL EXAMINATION: GENERAL: The patient is alert and oriented x3, not in any acute distress. Well developed, well nourished. HEENT: Pupils are round and equally reacting to light. EOMI. No scleral icterus. No conjunctival pallor. Normocephalic, atraumatic. No pharyngeal erythema. No thyromegaly. CARDIOVASCULAR: S1 and S2 present. No murmurs, rubs, or gallops. PULMONARY: Chest is clear to auscultation, no wheezing or crackles. ABDOMEN: Soft, nontender, nondistended, normoactive bowel sounds. No palpable organomegaly. MUSCULOSKELETAL: No joint swelling or deformity. EXTREMITIES: No cyanosis, clubbing, or pedal edema. NEUROLOGICAL: Gross neurological examination did not reveal any focal deficits. SKIN: No rashes. Assessment and Plan Plan: Sepsis: Source is probably upper respiratory tract along with the left lower lobe community acquired pneumonia possibly pneumococcal including sinusitis . -COPD with minimal exacerbation -Hypertension -Obesity -Anxiety disorder -Obstructive sleep apnea patient will continue her CPAP machine Patient Condition at Discharge: Stable Plan - Discharge Summary New Discharge Prescriptions: New Budesonide-Formot 160-4.5 Mcg [Symbicort 160-4.5 Mcg Inhaler] 2 puff INHALATION BID #1 inhaler Tiotropium [place] [Spiriva] 1 cap INHALATION DAILY #1 device Levofloxacin [Levaquin] 750 mg PO DAILY #7 tab Continue Lansoprazole [Prevacid] 30 mg PO QAM Loratadine [Claritin] 10 mg PO DAILY Montelukast [Singulair] 10 mg PO HS buPROPion XL [Wellbutrin XL] 150 mg PO DAILY Telmisartan [Micardis] 40 mg PO DAILY Simvastatin [Zocor] 20 mg PO HS Meloxicam 15 mg PO DAILY Benzonatate [Tessalon Perles] 100 mg PO TID PRN PRN Reason: Cough Albuterol Nebulized [Ventolin Nebulized] 2.5 mg INHALATION RT-Q6H PRN PRN Reason: Shortness Of Breath Mirabegron [Myrbetriq] 50 mg PO DAILY Discontinued Amoxic-Pot Clav 875-125Mg [Augmentin 875-125] 1 tab PO Q12HR Discharge Medication List Lansoprazole [Prevacid] 30 mg PO QAM 06/22/14 [History] Loratadine [Claritin] 10 mg PO DAILY 06/22/14 [History] Montelukast [Singulair] 10 mg PO HS 06/22/14 [History] Albuterol Nebulized [Ventolin Nebulized] 2.5 mg INHALATION RT-Q6H PRN 10/03/18 [ History] Benzonatate [Tessalon Perles] 100 mg PO TID PRN 10/03/18 [History] Meloxicam 15 mg PO DAILY 10/03/18 [History] Mirabegron [Myrbetriq] 50 mg PO DAILY 10/03/18 [History] Simvastatin [Zocor] 20 mg PO HS 10/03/18 [History] Telmisartan [Micardis] 40 mg PO DAILY 10/03/18 [History] buPROPion XL [Wellbutrin XL] 150 mg PO DAILY 10/03/18 [History] Budesonide-Formot 160-4.5 Mcg [Symbicort 160-4.5 Mcg Inhaler] 2 puff INHALATION BID #1 inhaler 10/04/18 [Rx] Levofloxacin [Levaquin] 750 mg PO DAILY #7 tab 10/04/18 [Rx] Tiotropium [place] [Spiriva] 1 cap INHALATION DAILY #1 device 10/04/18 [Rx] Follow up Appointment(s)/Referral(s): Sourav Brandt MD [Primary Care Provider] - 3 Days Discharge Disposition: HOME SELF-CARE
[2018-10-04 13:51] VITALS: BP 146/78; PULSE 89; RESP 20; TEMP 98
--- NOTE | 2018-10-04 17:40 | PN ---
PROGRESS NOTE DATE OF SERVICE: 10/04/2018 REASON FOR FOLLOWUP: Fever, likely community-acquired pneumonia. INTERVAL HISTORY: The patient is afebrile. She is feeling better. Breathing comfortably. The patient had cough ( ) decreased, however, ( ) but not bringing up some sputum. No hemoptysis. No nausea, vomiting. No abdominal pain, no diarrhea. PHYSICAL EXAMINATION: Blood pressure 141/71, pulse 81, temperature 97.8. She is 96% on room air. GENERAL DESCRIPTION: An elderly female lying in bed in no distress. RESPIRATORY SYSTEM: unlabored breathing. Some decreased breath sounds. No wheeze. HEART: S1, S2. Regular rate and rhythm. ABDOMEN: Soft, no tenderness. LABS: Hemoglobin is 14.4, white count 8.7, BUN of 20, creatinine 0.64. Blood cultures have been negative. Chest x-ray with left lower lobe infiltrate. DIAGNOSTIC IMPRESSION AND PLAN: Patient admitted to the hospital with fever and cough, likely left lower lobe pneumonia, community acquired. Patient seemed to have shown clinical improvement on Levaquin. Continue p.o. Levaquin for another 5-7 days to finish a course of therapy. Continue supportive care. MMODL / IJN: [id number] /
[2018-10-04] MEDS ORDERED: methylPREDNISolone SOD SUCCI 125 MG/2 ML VIAL IV SCH (18:00)
--- NOTE | 2018-10-04 21:40 | CONS ---
CONSULTATION DATE OF SERVICE: 10/04/2018. This is a 68-year-old female who sees Dr. Sourav Brandt and also sees my partner, Dr. Lozano. She comes to the hospital complaining of cough and shortness of breath. She has had symptoms for a couple weeks now. It seemed to start as an upper respiratory tract infection/sinus infection. She apparently was treated with Augmentin, but did not improve. She is not complaining of shortness of breath, chest tightness wheezing cough. She apparently also had fever and chills. Her cough is mostly nonproductive, but occasionally she will produce a small amount of clear to white phlegm. No fever or chills. Her chest x-ray does not show an acute infiltrate. She sees Dr. Lozano because of the COPD. She apparently has a heavy history of tobacco use. She has smoked since the age of 21 to the age of 58. She smoked more than a pack a day. The patient states that she was told that she has well-established COPD by my partner. In addition, she sees Dr. Lozano for sleep apnea syndrome. She was on CPAP, but apparently her device has broken. HOME MEDICATIONS: Include albuterol inhaler, Prevacid, Claritin, Cozaar, Nasonex nasal spray, Singulair, updrafts with albuterol and Atrovent, Mag-Ox, ciprofloxacin, Tylenol with codeine, prednisone with a burst and taper and promethazine with codeine cough syrup. In addition, she is on an inhaler called Dulera which is a combination inhaled corticosteroids/long-acting beta agonist. ALLERGIES: ALLERGIES INCLUDE CEFUROXIME WHICH IS CEFTIN, PYRIDIUM. MEDICAL HISTORY: COPD, hypertension, kidney stones, diverticular disease, irritable bowel syndrome, sleep apnea syndrome, currently on CPAP, although not using because the machine is broken, osteopenia. Restless legs syndrome and degenerative disc disease. She also has a previous history of extended spectrum beta lactamase producing organisms in her urine. SURGICAL HISTORY: Includes among other things bladder surgery, cholecystectomy, hernia repair, lithotripsy and right foot surgery. SOCIAL HISTORY: Previous or heavy tobacco use in the past. She has smoked for 37 years. She has smoked more than a pack a day. FAMILY HISTORY: Positive for emphysema and tuberculosis. REVIEW OF SYSTEMS: CONSTITUTIONAL: Negative. NEUROLOGIC: Negative. HEENT: Nasal congestion, drainage, sinus pressure and pain, sinus infection. CARDIOVASCULAR: Negative. PULMONARY: Shortness of breath, chest tightness, wheezing and cough. Occasional phlegm production. GI/: Negative. RHEUMATOLOGIC, HEMATOLOGIC, negative. ENDOCRINOLOGIC, DERMATOLOGIC all negative. PHYSICAL EXAMINATION: Current vital signs are reviewed. Temperature is 97.8. Heart rate 81, respiratory rate 18, blood pressure 141/71 mean 94. Room air saturation is 96%. The patient does not appear to be in any distress. There is no audible wheezing. No use of accessory muscles. No nasal flaring. HEENT examination is grossly unremarkable. Mucous membranes are moist. Nasal mucosa could not be evaluated. Oral cavity is without lesion. NECK: Supple. Full range of motion. No adenopathy or thyromegaly. Neck veins are flat. Cardiovascular examination reveals regular rhythm and rate. Heart rate in mid 70s. LUNGS: Some coarse inspiratory and expiratory wheezes and rhonchi. She cannot take a deep breath without coughing. Likewise when she forcibly fails, her adventitious lung sounds are more prominent. She coughs and wheezes. Breath sounds are diminished throughout. Abdomen is obese. Bowel sounds are heard. Extremities are intact. No cyanosis, clubbing, or edema. Skin without rash. Neurologic examination is brief but nonfocal. X-RAY: Shows no changes of acute pneumonia. She does have some atelectasis on the more recent x-ray to the left lung base. I do not believe it is an infiltrate. LABS: Reviewed. CBC is normal. Sodium, potassium, chloride, CO2 normal. Anion gap is normal. BUN and creatinine were 20 and 0.64. Urine is noted. It is negative. Influenza studies are negative. Troponin is normal. Procalcitonin levels very low. ASSESSMENT: 1. Chronic obstructive pulmonary disease exacerbation, possibly complicated by purulent tracheobronchitis. 2. Probable upper respiratory tract infection status post acute sinusitis which may be trigger her chronic obstructive pulmonary disease. 3. History of gastroesophageal reflux disease. 4. History of environmental allergies. 5. History of hypertension. 6. Diverticular disease. 7. History of kidney stones. 8. History of irritable bowel syndrome. 9. Sleep apnea, currently noncompliant with her broken CPAP device. 10.Restless legs syndrome. 11.Degenerative disc disease. PLAN: Her medications will be reviewed. We will make sure she is on appropriate medications including DuoNeb, Pulmicort Perforomist, Solu-Medrol and oral antibiotic. Additional recommendations and suggestions are forthcoming. Followup chest x-ray shows some atelectasis at the left lung base. I do not believe this represents pneumonia. MMODL / IJN: [id number] /
== END 2018-10-04 16:05 | disposition home or self-care (01) ==
LOC: EC 07:09 → 3NMEDONC 11:17
PROVIDERS: ADMIT Internal Medicine; ATTEND Internal Medicine
DX: A41.9 Sepsis, unspecified organism (principal); J18.9 Pneumonia, unspecified organism; J32.9 Chronic sinusitis, unspecified; E66.9 Obesity, unspecified; Z68.41 Body mass index [BMI] 40.0-44.9, adult; J44.1 Chronic obstructive pulmonary disease with (acute) exacerbation; F41.9 Anxiety disorder, unspecified; G25.81 Restless legs syndrome; M85.80 Other specified disorders of bone density and structure, unspecified site; K58.9 Irritable bowel syndrome, unspecified; F17.210 Nicotine dependence, cigarettes, uncomplicated; J44.0 Chronic obstructive pulmonary disease with (acute) lower respiratory infection; K21.9 Gastro-esophageal reflux disease without esophagitis; K57.90 Diverticulosis of intestine, part unspecified, without perforation or abscess without bleeding; G47.33 Obstructive sleep apnea (adult) (pediatric); M26.609 Unspecified temporomandibular joint disorder, unspecified side; I10 Essential (primary) hypertension; Z82.5 Family history of asthma and other chronic lower respiratory diseases; Z90.49 Acquired absence of other specified parts of digestive tract; Z86.19 Personal history of other infectious and parasitic diseases; Z87.442 Personal history of urinary calculi; Z99.89 Dependence on other enabling machines and devices; Z79.899 Other long term (current) drug therapy; Z87.440 Personal history of urinary (tract) infections; Z91.19 Patient's noncompliance with other medical treatment and regimen
CPT/HCPCS: 96374; 99285; 36415; 94640 ×4; 80053; 80048; 82550; 82553; 83605; 83735; 84484; 85025; 85027; 85610; 85730; 81003; 87040; 87502; 83036; 84145; 71046 ×2; G0378 ×2; J2930

== ENCOUNTER → 2019-03-22 | Outpatient (CLI) | payer MEDICARE, BC ==
--- NOTE | 2019-03-22 08:57 | US ---
EXAMINATION TYPE: US duplex aorta DATE OF EXAM: 03/22/2019 COMPARISON: NONE CLINICAL HISTORY: Z13.6 Screening for cardiovascular disorder. Prev smoker, HTN EXAM MEASUREMENTS: Abdominal Aorta: Proximal: 2.0 x 2.3 cm Mid: 1.7 x 2.0 cm Distal: 1.6 x 1.6 cm Bifurcation: Right- 0.9 x 1.3 cm Left- 0.9 x 1.4 cm No AAA visualized. Atherosclerotic changes seen. IMPRESSION: Moderate atherosclerosis throughout the abdominal aorta without sonographic evidence of a bdominal aortic aneurysm in the visualized portions of the aorta.
== END | disposition home or self-care (01) ==
LOC: RADUSWWP 07:39
PROVIDERS: ATTEND Family Medicine
DX: I70.0 Atherosclerosis of aorta (principal)
CPT/HCPCS: 93979

== ENCOUNTER → 2019-08-16 | Outpatient (CLI) | payer MEDICARE, BC ==
--- NOTE | 2019-08-16 12:29 | XR ---
EXAMINATION TYPE: XR shoulder limited RT DATE OF EXAM: 08/16/2019 CLINICAL HISTORY: Right shoulder pain TECHNIQUE: 2 views of the right shoulder are obtained. COMPARISON: None. FINDINGS: There is no acute fracture/dislocation evident in the right shoulder. The acromioclavicul ar and glenohumeral joint spaces appear aligned. Mild acromioclavicular arthropathy with small margin al osteophytes. The visualized ribs are intact and unremarkable. IMPRESSION: There is no acute fracture or dislocation in the right shoulder. Mild acromioclavicular arthropathy.
== END | disposition home or self-care (01) ==
LOC: RADXRMAIN 11:39
PROVIDERS: ATTEND Orthopaedic Surgery
DX: M19.011 Primary osteoarthritis, right shoulder (principal)

== ENCOUNTER 2019-11-23 07:35 | Day surgery (SDC) | payer BC, MEDICARE ==
--- NOTE | 2019-11-22 13:13 | HP ---
HISTORY AND PHYSICAL Surgery is scheduled for 11/23/2019. Brittney Teran is a 69-year-old patient who is seen with progressive right shoulder pain. We discussed options for treatment. She elected to proceed with arthroscopy. Consent was obtained. Medical clearance was provided. PAST MEDICAL HISTORY: Hypertension, hyperlipidemia, asthma. PAST SURGICAL HISTORY: Cataract surgery, cholecystectomy, foot surgery, bladder surgery. DAILY MEDICATIONS: 1. Simvastatin. 2. Telmisartan. ALLERGIES: None. SOCIAL HISTORY: She denies current tobacco use. PHYSICAL EXAMINATION: Physical evaluation of the right shoulder: Flexion is 90 degrees, abduction is 80 degrees, external rotation is 50 degrees with some pain and weakness. There is tenderness along the anterior lateral acromion and rotator cuff insertion site as well as the acromioclavicular joint. Impingement sign is positive at 90 degrees. Drop-arm sign is positive. Distal neurovascular exam is intact. Radiographs of the right shoulder revealed a lateral downsloping anterior acromion, evidence for acromioclavicular joint and glenohumeral joint osteoarthritis. A right shoulder MRI revealed impingement acromioclavicular and glenohumeral joint osteoarthritis. IMPRESSION: Right shoulder impingement with possible rotator cuff tear, acromioclavicular and glenohumeral joint osteoarthritis. PLAN: Right shoulder arthroscopy with subacromial decompression, possible arthroscopic rotator cuff repair, probable Charlie procedure and debridement. MMODL / IJN: [id number] /
[~2019-11-23 07:35] MED LIST: DEXAMETHASONE SOD PHOSPHATE 10 MG/ML 1 ML VIAL IV ONE; HYDROmorphone 0.5 MG/0.5 ML SYRINGE IVP PRN; LACTATED RINGERS 1,000 ML IV SCH; LIDOCAINE 1% (10MG/ML) FOR IV START INTRADERMA PRN; MIDAZOLAM 2 MG/2 ML VIAL IV PRN; ONDANSETRON 4 MG/2 ML VIAL IVP ONE; fentaNYL (PF) 50 MCG/ML 2 ML AMP IVP PRN
--- NOTE | 2019-11-23 09:23 | P.ANPRN ---
Procedure Note - Anesthesia - Nerve Block Performed Right Interscalene Single Time Out Performed: Yes Date of Procedure: 11/23/19 Procedure Start Time: 09:00 Procedure Stop Time: 09:05 Location of Patient: PreOp Indication: Acute Post-Operative Pain, Dx/Pain Location, Requested by Surgeon Sedation Type: Sedate with meaningful contact maintained Preparation: Sterile Prep Position: Supine Catheter: None Needle Types: Pajunk Needle Gauge: 21 Ultrasound used to visualize needle placement: Yes Ultrasound used to observe medication spread: Yes Injectate: 0.5% Ropivacaine (see comment for volume) (20ml) Blood Aspirated: No Pain Paresthesia on Injection Noted: No Resistance on Injection: Normal Image Stored and Saved: Yes Events: Uneventful and Well Tolerated
[2019-11-23] MEDS ORDERED: PROPOFOL 10 MG/ML 20 ML VIAL IV ONE (09:25)
[2019-11-23] MEDS ORDERED: ROPIVACAINE 5 MG/ML 30 ML VIAL ONE (09:25)
[2019-11-23] MEDS ORDERED: LIDOCAINE 2%-EPI 1:100,000 20 ML VIAL ONE (09:25)
[2019-11-23] MEDS ORDERED: SUCCINYLCHOLINE CHLORIDE 100 MG/5 ML SYR IV ONE (09:25)
[2019-11-23] MEDS ORDERED: fentaNYL (PF) 50 MCG/ML 2 ML AMP ONE (09:25)
[2019-11-23] MEDS ORDERED: LIDOCAINE 1% INJ 10MG/ML (20 ML MDV) ONE (09:25)
[2019-11-23] MEDS ORDERED: LACTATED RINGERS 1,000 ML IV ONE (10:49)
[2019-11-23 10:58] VITALS: TEMP 97
--- NOTE | 2019-11-23 11:06 | P.OP ---
Date of Procedure: 11/23/19 Preoperative Diagnosis: Right shoulder impingement Postoperative Diagnosis: 1. Right shoulder rotator cuff tear 2. Right shoulder impingement 3. Right shoulder acromioclavicular joint osteoarthritis 4. Right shoulder partial long head biceps tendon tear 5. Right shoulder superficial labral tear 6. Right shoulder glenohumeral joint osteoarthritis Procedure(s) Performed: 1. Right shoulder arthroscopic rotator cuff repair 2. Right shoulder arthroscopic subacromial decompression 3. Right shoulder arthroscopic Charlie procedure 4. Right shoulder arthroscopic biceps tenotomy 5. Right shoulder arthroscopic debridement labral tear Implants: 1Arthrex 5.5 swivel lock anchor Anesthesia: GETA, regional (Interscalene block) Surgeon: Cesar Nagy Operater #1: Mark Flores Estimated Blood Loss (ml): 10 Pathology: none sent Condition: stable Disposition: PACU Indications for Procedure: 69-year-old patient seen with progressive right shoulder pain. After having options regarding treatment were discussed, she elected to proceed with arthroscopy Operative Findings: See description of procedure Description of Procedure: Patient underwent an interscalene block by department of anesthesia for postoperative pain management. The patient was then taken to the operative suite. The patient underwent a general anesthetic by the department of anesthesia. The patient was placed into a lateral position and secured. There was appropriate padding of the bony prominence. Right shoulder was then prepped and draped in normal sterile orthopedic fashion. We placed the extremity in 10 pounds of longitudinal traction. A posterior incision was now made for a posterior working portal site. The trocar and cannula were inserted into the glenohumeral joint. Arthroscopy was initiated. Spinal needle was now inserted anteriorly, to ascertain the anterior working portal site. An incision was now made in that area, a trocar was inserted followed by a probe. There was grade 2/3 chondromalacia changes of the superior and anterior glenoid as well as grade 3 chondromalacia changes on the superior aspect of the humeral head. There were no osteochondral tears present. There were diffuse superficial labral tears involving the superior and anterior labrum. There was some partial tearing long head biceps tendon. I could visualize the rotator cuff tear along the mid body distal supraspinatus from the glenohumeral side. I debrided the superficial labral tears getting down to stable labral tissue. I performed an arthroscopic biceps tenotomy. The residual labrum was stable. Instruments were now removed from the glenohumeral joint. Utilizing the posterior working portal site, the trocar and cannula were inserted into the subacromial space. Arthroscopy initiated. I made an incision 2 fingerbreadths lateral to the acromion. I introduced my trocar followed by my ArthroCare ablator. I now began ablating thick subacromial bursal tissue, which exposed the undersurface of the anterior acromion. There was diminished subacromial space. There was a very prominent anterior acromion. A motorized bur was introduced and a subacromial decompression was performed. I also excised some osteophytes off the inferior aspect of the distal clavicle. The AC joint was visualized and noted to be fairly arthritic. The motorized bur was introduced in the anterior portal site and a Charlie procedure was performed without difficulty, decompressing the AC joint nicely. I turned my attention to the rotator cuff. There was a 11.5 cm rotator cuff tear. I debrided the margins getting on a stable tendon tissue. The defect. The measure proximal 1.5 cm but freely mobile over the footprint. I abraded the footprint with a motorized bur. I now passed 3 horizontal mattress sutures through good bites of rotator cuff tendon. I now punched a hole at the footprint area for insertion of an anchor. I now passed all 6 limbs of suture through the eyelet of a 5.5 A rthrex swivel lock anchor. I now introduced the eyelet into the pre-punch hole. I now held the eyelet in position while Cornel CORREA tensioned all 6 limbs of suture and then deployed the anchor with good fixation noted. All residual suture limbs were now clipped. We had good compression of the tendon along the entire footprint. I injected 1 mL Renyte intra-articular. Instruments now removed from the portal sites. All portal sites were approximated with nylon suture. Sterile dressings were applied followed by a shoulder sling. Mark CORREA assisted in this complex case. The patient was awakened, transferred to a bed, and taken to recovery in stable condition.
[2019-11-23] MEDS ORDERED: KETOROLAC 30 MG/ML 1 ML VIAL IVP ONE (11:20)
[2019-11-23] MEDS ORDERED: ONDANSETRON 4 MG/2 ML VIAL IVP ONE (11:25)
[2019-11-23 12:52] VITALS: BP 119/63; PULSE 71; RESP 18
== END 2019-11-23 13:26 | disposition home or self-care (01) ==
LOC: OR 07:35
PROVIDERS: ATTEND Orthopaedic Surgery
DX: M75.101 Unspecified rotator cuff tear or rupture of right shoulder, not specified as traumatic (principal); M75.41 Impingement syndrome of right shoulder; M19.011 Primary osteoarthritis, right shoulder; X58.XXXA Exposure to other specified factors, initial encounter; S46.111A Strain of muscle, fascia and tendon of long head of biceps, right arm, initial encounter; S43.431A Superior glenoid labrum lesion of right shoulder, initial encounter; M94.211 Chondromalacia, right shoulder; M25.711 Osteophyte, right shoulder; J44.9 Chronic obstructive pulmonary disease, unspecified; I10 Essential (primary) hypertension; E78.5 Hyperlipidemia, unspecified; Z79.899 Other long term (current) drug therapy; Z90.49 Acquired absence of other specified parts of digestive tract; Z98.49 Cataract extraction status, unspecified eye; Z98.890 Other specified postprocedural states; G47.33 Obstructive sleep apnea (adult) (pediatric); Z99.89 Dependence on other enabling machines and devices; Z87.891 Personal history of nicotine dependence; K21.9 Gastro-esophageal reflux disease without esophagitis; Z88.1 Allergy status to other antibiotic agents
CPT/HCPCS: 29826; 29827; 29824; 64415; 76942; C1713; Q4212; J2250; J1100; J0690; J2405; J2001; J3010; J1885; J2795; J0330; J2704; J1170

== ENCOUNTER → 2020-10-09 | Outpatient (CLI) | payer MEDICARE | END | disposition home or self-care (01) | LOC: LABWHC1 12:29 | PROVIDERS: ATTEND Nurse Practitioner | DX: Z20.828 Contact with and (suspected) exposure to other viral communicable diseases (principal) | CPT/HCPCS: U0003; C9803 ==

== ENCOUNTER → 2022-04-30 | Outpatient (CLI) | payer MEDICARE, BC ==
--- NOTE | 2022-04-30 12:11 | XR ---
Lumbosacral spine HISTORY: Low back pain 5 views of lumbosacral spine Bone mineralization is reduced which may limit evaluation. There is no evident spondylolysis, anterol isthesis grade 1 at L4-5. Lumbar vertebral bodies show preserved height. Facet arthropathy changes ar e present in the posterior elements. There is loss of disc height L4-5 SPECT rudimentary rib T12. Anne gical clips are present right upper quadrant. Apical scarring calcifications present in the aorta zakia ac distribution. There is multilevel spondylosis. IMPRESSION: Degenerative disc disease, facet arthropathy, osteopenia and spondylolisthesis, additiona l findings above
== END | disposition home or self-care (01) ==
LOC: RADXRMAIN 11:39
PROVIDERS: ATTEND Family Medicine
DX: M47.896 Other spondylosis, lumbar region (principal); M85.88 Other specified disorders of bone density and structure, other site; M43.16 Spondylolisthesis, lumbar region
CPT/HCPCS: 72110

== ENCOUNTER → 2023-05-19 | Outpatient (CLI) | payer MEDICARE, BC ==
--- NOTE | 2023-05-19 12:04 | XR ---
EXAMINATION TYPE: XR shoulder complete LT DATE OF EXAM: 05/19/2023 11:50 AM INDICATION: Patient age:Female; 72 years old; Reason for study: SHOULDER PAIN [id number]; COMPARISON: None TECHNIQUE: The left shoulder was examined in AP, internally rotated and scapular Y projections. FINDINGS: No evidence of acute osseous pathology, joint dislocation, or soft tissue swelling. The remaining por tions of the visualized chest are unremarkable. Mild degeneration of the abdomen, clavicular and sofia ohumeral joint with joint space narrowing and osteophytes early formation. IMPRESSION: 1. No acute osseous pathology. 2. Mild osteoarthrosis changes of the shoulder.
== END | disposition home or self-care (01) ==
LOC: RADXRMAIN 11:25
PROVIDERS: ATTEND Family Medicine
DX: M24.811 Other specific joint derangements of right shoulder, not elsewhere classified (principal); M19.012 Primary osteoarthritis, left shoulder

== ENCOUNTER → 2024-03-03 | Outpatient (CLI) | payer MEDICARE ==
--- NOTE | 2024-03-03 13:46 | XR ---
Lumbar spine. HISTORY: Back pain COMPARISON: 04/30/2022. TECHNIQUE: 5 views of lumbar spine were obtained. FINDINGS: The lumbar vertebral segments are normal in height and alignment and there is no fracture or subluxat ion. The disc spaces are well-maintained in height. There is stable mild compression deformity of T11. The re is stable moderate to marked degenerative disease at T11/T12 level. There is mild facet arthropathy in the lower lumbar spine. There is no spondylolysis or spondylolisth esis. Sacrum and SI joints are normal. IMPRESSION: 1. No lumbar spine fracture or malalignment. 2. Mild chronic compression fracture of T12. 3. Stable moderate degenerative disc disease at T11/T12 level. 4. No spondylolysis or spondylolisthesis.
--- NOTE | 2024-03-03 13:48 | XR ---
EXAMINATION TYPE: XR Hip RT and AP Pelvis DATE OF EXAM: 03/03/2024 COMPARISON: NONE HISTORY: Right hip pain TECHNIQUE: A single AP view of the pelvis is obtained. Two views of the right hip are obtained. FINDINGS: The pelvis is intact and there is no fracture or focal intraosseous abnormality. There is n o sclerosis or diastasis of the pubic symphysis or SI joints.. There is no hip fracture or dislocation. The joint spaces are well-maintained. There is mild subchondral sclerosis and hypertrophic spurring o f the acetabuli. IMPRESSION: 1. Mild osteoarthritic changes right hip. 2. No acute trauma to the pelvis or right hip.
== END | disposition home or self-care (01) ==
LOC: RADXRMAIN 12:51
PROVIDERS: ATTEND Family Medicine
DX: M16.11 Unilateral primary osteoarthritis, right hip (principal); M51.36 Other intervertebral disc degeneration, lumbar region; M51.34 Other intervertebral disc degeneration, thoracic region; M48.54XA Collapsed vertebra, not elsewhere classified, thoracic region, initial encounter for fracture
CPT/HCPCS: 72110; 73502

== ENCOUNTER → 2024-03-23 | Outpatient (CLI) | payer MEDICARE ==
--- NOTE | 2024-03-23 11:38 | BD ---
EXAMINATION TYPE: Axial Bone Density DATE OF EXAM: 03/23/2024 CLINICAL HISTORY: 73 years old Female. ICD-10 CODE: Z12.31 SCR MAMMO Z78.0 ASYMPTOMATIC MENOPAUSAL S TA Height: 60.25 Weight: 204.2 FRAX RISK QUESTIONS: Alcohol (3 or more units per day): no Family History (Parent hip fracture): no Glucocorticoids (More than 3mos): no (Ex: prednisone, prednisolone, methylprednisolone, dexamethasone, and hydrocortisone). History of Fracture in Adulthood: yes Secondary Osteoporosis: 1. Type 1 Diabetes: no 2. Hyperthyroidism: no 3. Menopause before 45: yes 4. Malnutrition: no 5. Chronic liver disease: no Rheumatoid Arthritis: no Current Tobacco Use: no RISK FACTORS HISTORY OF: Hip Fracture (Right/Left): no Spine Fracture: T-Spine When: 2022 History of Wrist Fracture: no Surgery to Spine/Hip(right/left)/Wrist (right/left): no MEDICATIONS: Thyroid Medications: no Osteoporosis Medications: no EXAM MEASUREMENTS: Bone mineral densitometry was performed using the smartclip System. Bone mineral density as measured about the Lumbar spine is: ----- L1-L4(G/cm2): 1.116 T Score Values are as follows: ----- L1: -1.9 ----- L2: -1.4 ----- L3: 0.7 ----- L4: -0.1 ----- L1-L4: -0.5 Z Score Values are as follows: ----- L1: -1.1 ----- L2: -0.6 ----- L3: 1.5 ----- L4: 0.6 ----- L1-L4: 0.2 Bone mineral density has: increased 1.1 % since study of: 02/26/2022 Bone mineral density about the R hip (g/cm2): 0.830 Bone mineral density about the L hip (g/cm2): 0.833 T Score values are as follows: -----R Neck: -1.9 -----L Neck: -1.7 -----R Total: -1.4 -----L Total: -1.4 Z Score values are as follows: -----R Neck: -0.7 -----L Neck: -0.5 -----R Total: -0.5 -----L Total: -0.5 Bone mineral density has: decreased -0.7 % since study of: 02/26/2022 FRAX%s: The graph provided illustrates a 16.2% chance for a major osteoporotic fx and a 2.8% chance f or the hips probability for fx in 10 years time. IMPRESSION: Osteopenia (T Score between -2.5 and -1). There is slightly increased risk of fracture and the patient may be considered for treatment. Re-Screen 2-5 years. NOTE: T-SCORE=SD OF THE YOUNG ADULT MEAN.
--- NOTE | 2024-03-24 09:21 | MM ---
Reason for Exam: Screening (asymptomatic). Last mammogram was performed 2 year(s) and 1 month(s) ago. Patient History: Menarche at age 14. First Full-Term at age 21. Postmenopausal. Risk Values: Gris 5 year model risk: 1.3%. NCI Lifetime model risk: 3.5%. Prior Study Comparison: 01/23/2011 Bilateral Screening Mammogram, [facility]. 09/15/2017 Bilateral Screening Mammogram, [facility]. 02/26/2022 Bilateral MG 3D screening mammo w/cad, [facility]. Tissue Density: The breasts are heterogeneously dense, which may obscure small masses. Findings: Analyzed By CAD. There is no suspicious group of microcalcifications or new suspicious mass in either breast. Overall Assessment: Benign, BI-RAD 2 Management: Screening Mammogram of both breasts in 1 year. . Patient should continue monthly self-breast exams. A clinical breast exam by your physician is recommended on an annual basis. This exam should not preclude additional follow-up of suspicious palpable abnormalities. Note on Gris scores and lifetime risk: 1. A Gris score greater than 3% is considered moderate risk. If this is the case, consider specialist referral to assess eligibility for a risk reducing agent. 2. If overall lifetime risk for the development of breast cancer is 20% or higher, the patient may qualify for future screening with alternating mammogram and breast MRI. Electronically signed and approved by: Stewart Dover M.D. Radiologis
== END | disposition home or self-care (01) ==
LOC: RADMAMWWP 06:44
PROVIDERS: ATTEND Family Medicine
DX: Z12.31 Encounter for screening mammogram for malignant neoplasm of breast (principal); M85.89 Other specified disorders of bone density and structure, multiple sites; Z78.0 Asymptomatic menopausal state
CPT/HCPCS: 77063; 77067; 77080

== ENCOUNTER → 2024-08-16 | Outpatient (CLI) | payer MEDICARE ==
[~2024-08-16] MED LIST changes: -DEXAMETHASONE SOD PHOSPHATE 10 MG/ML 1 ML VIAL IV ONE; -HYDROmorphone 0.5 MG/0.5 ML SYRINGE IVP PRN; -LACTATED RINGERS 1,000 ML IV SCH; -LIDOCAINE 1% (10MG/ML) FOR IV START INTRADERMA PRN; -MIDAZOLAM 2 MG/2 ML VIAL IV PRN; -ONDANSETRON 4 MG/2 ML VIAL IVP ONE; +REGADENOSON 0.4 MG/5 ML SYRINGE IV ONE; -fentaNYL (PF) 50 MCG/ML 2 ML AMP IVP PRN
--- NOTE | 2024-08-16 12:16 | CA ---
Lexiscan Nuclear Stress Test Report Name: Brittney Teran Exam Date: 08/16/2024 10:59 Exam Location: [facility] Ht (in): 60 Wt (lb): 202 BSA: 1.87 Ordering Phys: Dick Brandt MD Referring Phys: DICK BRANDT Technologist: Anton Jacobs Age: 73 Gender: F : 1950 Procedure CPT: Indications: R94.31 ABNORMAL EKG ICD-10 Codes: Patient History: HTN, PRIOR SMOKER, ASTHMA Medications: Meds past 24 hrs: Pretest Chest Pain: STRESS TEST Lexiscan Protocol Exercise Duration (min:sec): 02:[address] Depressions (mm): Angina Score: Pinon Score: Resting HR (bpm): 72 Peak HR (bpm): 96 Resting BP (mmHg): 158 / 105 Peak BP (mmHg): 168 / 84 MPHR: 149 Target HR: 127 % MPHR: 64 METS: 1.0 Total Dose: Peak Dose: Atropine: Double Product: 83313 BP Response: Stress Termination: INFUSION COMPLETE Stress Symptoms: NO SYMPTOMS Stress Summary: ECG ANALYSIS Resting ECG: Normal sinus rhythm normal axis normal intervals Stress ECG: Patient was given intravenous Lexiscan as a protocol did not have chest pain or diagnostic ST segment depression CONCLUSIONS Negative stress test by EKG criteria Cardiolite portion of the stress test will be reported separately Dr. Seferino Reyna MD (Electronically Signed) Final Date: 16 August 2024 12:15
--- NOTE | 2024-08-16 13:59 | NM ---
EXAMINATION TYPE: NM stress lexiscan cardiolite DATE OF EXAM: 08/16/2024 COMPARISON: NONE HISTORY: Abnormal EKG TECHNIQUE: After the intravenous administration of 8.16 mCi Tc 99m Sestamibi - Cardiolite resting SP ECT images acquired 50 minutes post injection. At peak stress 24.3 mCi Tc 99m Sestamibi - Stress images obtained 30 minutes post injection The patient was stressed with 0.4mg Lexiscan. FINDINGS: There is a small defect along the lateral wall near the cardiac apex. There is normal radiotracer dis tribution on the resting images. Polar maps correlate with the SPECT imaging. There may be some minimal dyskinesia at the cardiac apex. Ejection fraction is calculated to be 60 %. IMPRESSION: 1. Small area of stress-induced ischemic change along the distal lateral wall extending into the card iac apex with normal radiotracer on the resting images. 2. Mild dyskinesia at the cardiac apex. [facility], , 08/16/2024 1:57 PM
== END | disposition home or self-care (01) ==
LOC: RADNMMAIN 08:41
PROVIDERS: ATTEND Family Medicine
DX: R94.31 Abnormal electrocardiogram [ECG] [EKG] (principal); G24.9 Dystonia, unspecified
CPT/HCPCS: 93017; 78452; A9500; J2785

== ENCOUNTER → 2024-08-18 | Outpatient (CLI) | payer MEDICARE ==
[2024-08-18 15:25] LABS: HCT 41.4 % (37.2-46.3); HGB 13.5 g/dL (12.0-15.0); MCH 29.8 pg (27.0-32.0); MCHC 32.6 g/dL (32.0-37.0); MCV 91.4 FL (80.0-97.0); Mean Platelet Volume 11.7 FL (9.5-12.2); NRBC Per 100 WBC 0 X 10*3/uL (0.00-0.01); Platelet Count 168 X 10*3/uL (140-440); RBC 4.53 X 10*6/uL (4.10-5.20); RDW 13.1 % (11.5-14.5); WBC 7.74 X 10*3/uL (4.50-10.00)
[2024-08-18 15:34] LABS: BUN/Creat Ratio 16.89 Ratio (12.00-20.00); Blood Urea Nitrogen 15.2 mg/dL (9.0-27.0); Glucose 95 mg/dL (70-110)
[2024-08-18 15:35] LABS: Calcium 9.3 mg/dL (8.7-10.3); Carbon Dioxide 20.5 mmol/L (21.6-31.8); Chloride 106 mmol/L (96-109); Potassium 4.8 mmol/L (3.5-5.5); Sodium 140 mmol/L (135-145)
== END | disposition home or self-care (01) ==
LOC: LABWHC1 10:28
PROVIDERS: ATTEND Internal Medicine Cardiovascular Disease
DX: R07.2 Precordial pain (principal)
CPT/HCPCS: 36415; 80048; 85027

== ENCOUNTER 2024-08-23 05:42 | Day surgery (SDC) | payer MEDICARE ==
[2024-08-23] MEDS ORDERED: ALPRAZolam 0.5 MG TAB PO PRN (05:48)
[2024-08-23] MEDS ORDERED: NITROGLYCERIN SL TABS 0.4 MG TAB SUBLINGUAL PRN (05:48)
[2024-08-23] MEDS ORDERED: ALPRAZolam 0.25 MG TAB PO PRN (05:48)
[2024-08-23 07:03] VITALS: RESP 16; TEMP 97
[2024-08-23] MEDS: SODIUM CHLORIDE 0.9% 1,000 ML IV ONE (07:04)
[2024-08-23] MEDS: SODIUM CHLORIDE 0.9% 1,000 ML in EMPTY BAG 1 BAG IV SCH (07:05)
[2024-08-23] MEDS: ATORVASTATIN 80 MG TAB PO STA (07:08)
[2024-08-23] MEDS: ASPIRIN 325 MG TAB PO STA (07:08)
[2024-08-23] MEDS: LIDOCAINE 1% INJ 10MG/ML (20 ML MDV) SQ ONE (07:31)
[2024-08-23] MEDS: fentaNYL (PF) 50 MCG/1 ML VIAL IVP ONE (07:31)
[2024-08-23] MEDS: MIDAZOLAM 2 MG/2 ML VIAL IVP ONE (07:31)
[2024-08-23] MEDS: VERAPAMIL SYRINGE (5 MG/10 ML) INTRAARTER ONE (07:36)
[2024-08-23] MEDS: HEPARIN SODIUM 1,000 UN/ML (10ML VL) IVP ONE (07:40)
[2024-08-23] MEDS: IOPAMIDOL-370 100ML BTL INJ ONE (07:47)
[2024-08-23] MEDS: HEPARIN SODIUM,PORCINE 10,000 UNIT in SODIUM CHLORIDE 0.9% 1,000 ML IRRIGATION PRN (07:48)
[2024-08-23] MEDS: HEPARIN SODIUM,PORCINE (1 ML) 2,500 UNIT in SODIUM CHLORIDE 0.9% 250 ML IRRIGATION PRN (07:48)
--- NOTE | 2024-08-23 08:54 | LTR ---
Dear Sourav: I performed cardiac catheterization on Brittney. A detailed catheterization note is enclosed for your records. In brief, cardiac catheterization reveals mild nonobstructive CAD. The patient's management is going to be in the form of risk factor modification and optimal medical therapy. Thank you for allowing me to participate in this pleasant lady. ALVA / WILMERN: [id number] /
--- NOTE | 2024-08-23 08:54 | CC ---
CARDIAC CATHETERIZATION REPORT INDICATION: Abnormal stress test. PROCEDURE NOTE: After obtaining informed consent, left heart catheterization and coronary angiogram were performed via the right radial artery using standard Alexis catheters. The patient tolerated the procedure well without any obvious immediate complications. The patient received moderate conscious sedation. Total sedation was 16 minutes. A TR band was used for hemostasis at the end of the procedure. Right radial artery access was obtained using Seldinger technique. A 6-[place] sheath was placed. Catheters and wires were floated into the ascending aorta under fluoroscopic guidance. FINDINGS: 1. Hemodynamics: Left ventricular end-diastolic pressure is . There is no significant gradient across the aortic valve. 2. Left ventriculogram: Left ventriculogram is not performed. 3. Angiographic data: a.Right coronary artery: Right coronary artery is a large dominant vessel and is free of significant stenosis. There is mild non atherosclerotic plaque. b.Left main coronary artery is a normal-sized vessel and is free of stenosis. Divides into left anterior descending coronary artery and circumflex coronary artery. Both left main LAD and circumflex coronary artery appears calcified, but there are no focal significant stenotic lesions noted. There is mild nonobstructive disease involving both LAD and circumflex coronary artery. CONCLUSIONS: Calcified left coronary system with mild nonobstructive coronary artery disease involving LAD and circumflex coronary artery and much right coronary artery. PLAN: Patient's stress test is a false-positive stress test. I reviewed angiographic data with her. Her management is going to be in the form of risk factor modification and medical therapy. MMODL / IJN: [id number] /
[2024-08-23 11:52] VITALS: BP 149/67; PULSE 64
== END 2024-08-23 11:54 | disposition home or self-care (01) ==
LOC: CATHCVL 05:42
PROVIDERS: ATTEND Internal Medicine Cardiovascular Disease
DX: I25.10 Atherosclerotic heart disease of native coronary artery without angina pectoris (principal); I10 Essential (primary) hypertension; E78.2 Mixed hyperlipidemia; F17.210 Nicotine dependence, cigarettes, uncomplicated; Z79.899 Other long term (current) drug therapy
CPT/HCPCS: 93458; C1769; C1894; J2250; J1644 ×3; J2003; Q9967; J3010

== ENCOUNTER 2025-04-20 13:06 | Emergency (ER) | payer MEDICARE ==
[2025-04-20 13:47] LABS: Bilirubin,Urine Negative (Negative); Blood,Urine Negative (Negative); Color,Urine Colorless; Glucose,Urine (UA) Negative (Negative); Ketones,Urine Negative (Negative); Leukocyte Esterase,Urine Negative (Negative); Nitrite,Urine Negative (Negative); PH, Urine 5.5 (5.0-8.0); Protein,Urine Negative (Negative); Specific Gravity,Urine 1.012 (1.001-1.035); Urobilinogen,Urine <2.0 mg/dL (<2.0)
[2025-04-20 14:28] LABS: Basophils # (A) 0.05 10*3/uL (0.00-0.10); Basophils % (A) 0.8 %; Eosinophils # (A) 0.16 10*3/uL (0.04-0.35); Eosinophils % (A) 2.4 %; HCT 37.2 % (37.2-46.3); HGB 12.3 g/dL (12.0-15.0); Lymphocytes # (A) 2.09 10*3/uL (0.90-5.00); Lymphocytes % (A) 31.6 %; MCH 29.1 pg (27.0-32.0); MCHC 33.1 g/dL (32.0-37.0); MCV 87.9 fL (80.0-97.0); Monocytes # (A) 0.62 10*3/uL (0.20-1.00); Monocytes % (A) 9.4 %; Neutrophils # (A) 3.68 10*3/uL (1.80-7.70); Neutrophils % (A) 55.6 %; Platelet Count 230 10*3/uL (140-440); RBC 4.23 10*6/uL (4.10-5.20); RDW 13.3 % (11.5-14.5); WBC 6.61 10*3/uL (4.50-10.00)
[2025-04-20 14:45] LABS: ALT 11 U/L (4-34); AST 20 U/L (14-36); African American GFR (CKD) >90 (>60 ml/min/1.73 sqM); Albumin 4.1 g/dL (3.5-5.0); Alkaline Phosphatase 95 U/L (38-126); Anion Gap 12 mmol/L; Blood Urea Nitrogen 21 mg/dL (7-17); Calcium 9.7 mg/dL (8.4-10.2); Carbon Dioxide 23 mmol/L (22-30); Chloride 105 mmol/L (98-107); Glucose 103 mg/dL (74-99); Non-African American GFR(CKD) 89 (>60 ml/min/1.73 sqM); Potassium 4.4 mmol/L (3.5-5.1); Sodium 140 mmol/L (137-145); Total Protein 6.8 g/dL (6.3-8.2)
--- NOTE | 2025-04-20 16:22 | ED ---
GI Bleed HPI - General Chief complaint: GI Bleed Stated complaint: Urogenital Time Seen by Provider: 04/20/25 15:07 Source: patient Mode of arrival: ambulatory Limitations: no limitations - History of Present Illness Initial comments: This patient is 74-year-old woman who presents to have evaluation for dark stools. The patient states that she had called her physician with complaint of having 2 days of pure black stools that she describes as being rocklike. She also noticed a small amount of red blood in the toilet. The patient states that she had been having some constipation prior to this and took Dulcolax on 2 consecutive days. The patient also notes that she had had a colonoscopy performed by Dr. Shrestha March 15 but states that she was told that things look normal. The patient is denying symptoms of anemia. She denies lightheadedness, palpitations, dyspnea, diaphoresis, or other symptoms. She is not having any abdominal or perianal pain. MD complaint: blood on toilet paper, melena -: days(s) Severity scale (1-10): 0 Quality: painless Consistency: constant Improves with: none Worsens with: none Associated Symptoms: denies other symptoms Treatments Prior to Arrival: none - Related Data Home Medications Medication Instructions Recorded Confirmed Lansoprazole [Prevacid] 30 mg PO QAM 06/22/14 03/15/25 Albuterol Nebulized [Ventolin 2.5 mg INHALATION RT-Q6H PRN 10/03/18 03/15/25 Nebulized] Simvastatin [Zocor] 20 mg PO 10/03/18 03/15/25 Telmisartan [Micardis] 80 mg PO QA 10/03/18 03/15/25 Acetaminophen [Tylenol] 325 - 650 mg PO Q6H PRN 11/22/19 03/15/25 Fluticasone Nasal [place] [Flonase 1 spr NASAL DAILY PRN 11/22/19 03/15/25 Nasal [place]] Latanoprost/Pf [Latanoprost 0.005% 1 drop BOTH EYES 11/22/19 03/15/25 Eye Drop] Albuterol Inhaler [Ventolin Hfa 1 - 2 puff INHALATION Q6H PRN 08/19/24 03/15/25 Inhaler] Aspirin 81 mg PO DAILY 08/19/24 03/15/25 Nitroglycerin Sl Tabs [Nitrostat] 0.4 mg SUBLINGUAL Q5M PRN 08/19/24 03/15/25 Solifenacin Succinate 10 mg PO DAILY 08/19/24 03/15/25 Risedronate Sodium 150 mg PO QMONTHLY 03/14/25 03/15/25 Sodium Chloride 5% Ophth Soln 1 drops BOTH EYES BID 03/14/25 03/15/25 [[place] 128] Allergies Allergy/AdvReac Type Severity Reaction Status Date / Time adhesive tape Allergy Itching Verified 04/20/25 13:29 cefuroxime AdvReac Unknown Nausea & Verified 04/20/25 13:29 Vomiting cefuroxime axetil AdvReac Unknown Nausea & Verified 04/20/25 13:29 [From Ceftin] Vomiting phenazopyridine AdvReac Unknown Nausea & Verified 04/20/25 13:29 [Phenazopyridine] Vomiting phenazopyridine HCl AdvReac Unknown Nausea & Verified 04/20/25 13:29 [From Pyridium] Vomiting Review of Systems ROS Statement: Those systems with pertinent positive or pertinent negative responses have been documented in the HPI. ROS Other: All systems not noted in ROS Statement are negative. Constitutional: Denies: fever, chills Respiratory: Denies: cough, dyspnea Cardiovascular: Denies: chest pain, palpitations Gastrointestinal: Reports: melena. Denies: abdominal pain, nausea, vomiting, diarrhea, hematochezia Genitourinary: Denies: dysuria, hematuria Musculoskeletal: Denies: back pain Skin: Denies: rash Neurological: Denies: headache, weakness Hematological/Lymphatic: Denies: easy bleeding Past Medical History Past Medical History: Asthma, Cancer, Chest Pain / Angina, Eye Disorder, Fibromyalgia, GERD/Reflux, Hearing Disorder / Deafness, Hyperlipidemia, Hypertension, Memory Impairment, Osteoarthritis (OA) Additional Past Medical History / Comment(s): Recent constipation w/bleeding.hx kidney stones, diverticulitis, IBS, TMJ, osteopenia, deg disc disease, skin ca left leg, glaucoma, short term memory loss History of Any Multi-Drug Resistant Organisms: ESBL Date of last positivie culture/infection: 12/10/22 MDRO Source:: ESBL URINE Past Surgical History: Bladder Surgery, Cholecystectomy, Heart Catheterization, Hernia Repair, Joint Replacement, Orthopedic Surgery Additional Past Surgical History / Comment(s): lithotripsy, right foot, hiatal hernia, bladder surg x 2,Colonoscopy. Rt hip replacement 01/2025 Past Anesthesia/Blood Transfusion Reactions: No Reported Reaction, Postoperative Nausea & Vomiting (PONV) Past Psychological History: Anxiety Smoking Status: Former smoker Past Alcohol Use History: None Reported Past Drug Use History: None Reported - Past Family History Mother Additional Family Medical History / Comment(s): TB 1954, emphysema General Exam Limitations: no limitations Rectal exam: Present: normal inspection, normal rectal tone, black stool. Absent: fecal impaction, hemorrhoids, mass, tenderness Course Vital Signs 04/20/25 04/20/25 13:25 15:44 Temperature 98.1 F Pulse Rate 77 61 Respiratory 20 17 Rate Blood Pressure 134/75 119/60 O2 Sat by Pulse 95 95 Oximetry Medical Decision Making - Lab Data Result diagrams: 04/20/25 14:10 04/20/25 14:10 Lab Results 04/20/25 04/20/25 04/20/25 Range/Units 13:40 14:10 14:10 WBC 6.61 (4.50-10.00) 10*3/uL RBC 4.23 (4.10-5.20) 10*6/uL Hgb 12.3 (12.0-15.0) g/dL Hct 37.2 (37.2-46.3) % MCV 87.9 (80.0-97.0) fL MCH 29.1 (27.0-32.0) pg MCHC 33.1 (32.0-37.0) g/dL Plt Count 230 (140-440) 10*3/uL MPV 10.5 (9.5-12.2) fL Immature Gran % (Auto) 0.2 % Neutrophils % 55.6 % Lymphocytes % 31.6 % Monocytes % 9.4 % Eosinophils % 2.4 % Basophils % 0.8 % Immature Gran # 0.01 (0.00-0.04) 10*3/uL Neutrophils # 3.68 (1.80-7.70) 10*3/uL Lymphocytes # 2.09 (0.90-5.00) 10*3/uL Monocytes # 0.62 (0.20-1.00) 10*3/uL Eosinophils # 0.16 (0.04-0.35) 10*3/uL Basophils # 0.05 (0.00-0.10) 10*3/uL APTT 20.3 L (22.0-30.0) sec Sodium (137-145) mmol/L Potassium (3.5-5.1) mmol/L Chloride (98-107) mmol/L Carbon Dioxide (22-30) mmol/L Anion Gap mmol/L BUN (7-17) mg/dL Creatinine (0.52-1.04) mg/dL Est GFR (CKD-EPI)AfAm (>60 ml/min/1.73 sqM) Est GFR (CKD-EPI)NonAf (>60 ml/min/1.73 sqM) Glucose (74-99) mg/dL Calcium (8.4-10.2) mg/dL Total Bilirubin (0.2-1.3) mg/dL AST (14-36) U/L ALT (4-34) U/L Alkaline Phosphatase (38-126) U/L Total Protein (6.3-8.2) g/dL Albumin (3.5-5.0) g/dL Urine Color Colorless Urine Appearance Clear (Clear) Urine pH 5.5 (5.0-8.0) Ur Specific [place] 1.012 (1.001-1.035) Urine Protein Negative (Negative) Urine Glucose (UA) Negative (Negative) Urine Ketones Negative (Negative) Urine Blood Negative (Negative) Urine Nitrite Negative (Negative) Urine Bilirubin Negative (Negative) Urine Urobilinogen <2.0 (<2.0) mg/dL Ur Leukocyte Esterase Negative (Negative) Stool Occult Blood (Negative) 04/20/25 04/20/25 Range/Units 14:10 16:19 WBC (4.50-10.00) 10*3/uL RBC (4.10-5.20) 10*6/uL Hgb (12.0-15.0) g/dL Hct (37.2-46.3) % MCV (80.0-97.0) fL MCH (27.0-32.0) pg MCHC (32.0-37.0) g/dL Plt Count (140-440) 10*3/uL MPV (9.5-12.2) fL Immature Gran % (Auto) % Neutrophils % % Lymphocytes % % Monocytes % % Eosinophils % % Basophils % % Immature Gran # (0.00-0.04) 10*3/uL Neutrophils # (1.80-7.70) 10*3/uL Lymphocytes # (0.90-5.00) 10*3/uL Monocytes # (0.20-1.00) 10*3/uL Eosinophils # (0.04-0.35) 10*3/uL Basophils # (0.00-0.10) 10*3/uL APTT (22.0-30.0) sec Sodium 140 (137-145) mmol/L Potassium 4.4 (3.5-5.1) mmol/L Chloride 105 (98-107) mmol/L Carbon Dioxide 23 (22-30) mmol/L Anion Gap 12 mmol/L BUN 21 H (7-17) mg/dL Creatinine 0.65 (0.52-1.04) mg/dL Est GFR (CKD-EPI)AfAm >90 (>60 ml/min/1.73 sqM) Est GFR (CKD-EPI)NonAf 89 (>60 ml/min/1.73 sqM) Glucose 103 H (74-99) mg/dL Calcium 9.7 (8.4-10.2) mg/dL Total Bilirubin 0.7 (0.2-1.3) mg/dL AST 20 (14-36) U/L ALT 11 (4-34) U/L Alkaline Phosphatase 95 (38-126) U/L Total Protein 6.8 (6.3-8.2) g/dL Albumin 4.1 (3.5-5.0) g/dL Urine Color Urine Appearance (Clear) Urine pH (5.0-8.0) Ur Specific [place] (1.001-1.035) Urine Protein (Negative) Urine Glucose (UA) (Negative) Urine Ketones (Negative) Urine Blood (Negative) Urine Nitrite (Negative) Urine Bilirubin (Negative) Urine Urobilinogen (<2.0) mg/dL Ur Leukocyte Esterase (Negative) Stool Occult Blood Positive H (Negative) - EKG Data -: EKG Interpreted by Ne EKG shows normal: sinus rhythm, axis (Indeterminant), intervals (Normal), QRS complexes (Possible old inferior infarct. Low voltage QRS complex) Rate: bradycardia (Rate 56 bpm.) Disposition Clinical Impression: Melena Disposition: HOME SELF-CARE Condition: Good Instructions (If sedation given, give patient instructions): Gastrointestinal Bleeding (ED) Is patient prescribed a controlled substance at d/c from ED?: No Referrals: Sourav Brandt MD [Primary Care Provider] - 1-2 days
[2025-04-20 18:01] VITALS: BP 124/67; PULSE 76; RESP 18; TEMP 98
== END 2025-04-20 17:38 | disposition home or self-care (01) ==
LOC: EC 13:06
DX: K92.1 Melena (principal); Z87.891 Personal history of nicotine dependence; Z88.8 Allergy status to other drugs, medicaments and biological substances; Z91.048 Other nonmedicinal substance allergy status
CPT/HCPCS: 36415; 80053; 81003; 82272; 85025; 85730; 93005; 99285